=== PATIENT | female | born 1965 | race Caucasian/White ===

== ENCOUNTER 2023-03-16 14:20 | Inpatient (IN) ==
--- NOTE | 2023-03-16 15:13 | DR.NAUSEAF ---
HPI Time Seen Time Seen by Provider: 03/16/23 15:13 Primary Care Physician Primary Care Physician: marty hernandez Complaints Chief Complaint Doctors Comments: 57 y/o female presents with worsening nausea, vomiting and weakness. PT has had a stormy course past several months. Underwent partial colon resection 06/2022, for perforated diverticulitis, went septic after that. They attempted to reverse the colostomy 12/2022, was unable. 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 Currently receiving TPN, as they are trying to build her back up for reversal. Has had chronic nausea for several months. Worsening past few days. Is vomiting small amounts at a time. Has been running a low grade temp, having increasing weakness. Has a chronic Weller. Chief Complaint:: pt c/o of increase nausea x2 days and a low grade fever. called her surgeon and he told her to come get checked out. COVID-19 Coronavirus risk:travel/contact w/high risk person: No Has patient experienced Coronavirus symptoms: No Reviewed Nurses Notes Reviewed: Yes Source History Provided: Patient Mode of Arrival Mode of Arrival: Wheelchair Timing Onset of Chief Complaint: 03/14/23 PMH PMH Past Medical History: Yes Past Medical History: Hypothyroidism Past Medical History Comment: glaucoma, fistula x2 Past Surgical History: Yes Surgical History: Abdominal Surgery, Hysterectomy and Ortho Surgery Past Surgical History Comment: colostomy Family History History of Family Medical Conditions: Yes Family Medical History: Cancer, [place], Heart Failure and Hypertension Social History Does patient currently use any type of tobacco product: No Have you used tobacco products in the last 12 months: No Alcohol Use: None Do you use any recreational Drugs:: No Lives With: Family Lives Where: Home Travel Risk Coronavirus risk:travel/contact w/high risk person: No Has patient experienced Coronavirus symptoms: No Infectious screening In the last 2 months have you had wt loss of >10#?: NO Have you had fever, night sweats or hemotysis?: No Have you traveled outside the country in the last 6 months?: No Isolation: Standard ROS Review of Systems Constitutional: Fever and Weakness Eyes: No Symptoms Reported ENTM: No Symptoms Reported Respiratoy: No Symptoms Reported Cardiovascular: No Symptoms Reported Gastrointestinal/Abdominal: Nausea and Vomiting Genitourinary: No Symptoms Reported Neurological: Weakness Musculoskeletal: No Symptoms Reported Integumentary: No Symptoms Reported Hematologic/Lymphatic: No Symptoms Reported All Other Systems: Reviewed and Negative PE Vital Signs Vitals: Vital Signs Temperature 98.0 F Temperature 98.5 F Pulse Rate 114 Pulse Rate 115 Pulse Rate 119 Pulse Rate 115 Pulse Rate 115 Pulse Rate 116 Pulse Rate 120 Pulse Rate 123 Pulse Rate 123 Pulse Rate 116 Pulse Rate 109 Pulse Rate 105 Pulse Rate 88 Pulse Rate 96 Pulse Rate 77 Pulse Rate 74 Pulse Rate 80 Pulse Rate 81 Pulse Rate 82 Pulse Rate 82 Pulse Rate 85 Pulse Rate 86 Pulse Rate 139 Pulse Rate 87 Pulse Rate 88 Pulse Rate 89 Pulse Rate 91 Respiratory Rate 52 Respiratory Rate 44 Respiratory Rate 41 Respiratory Rate 39 Respiratory Rate 56 Respiratory Rate 54 Respiratory Rate 45 Respiratory Rate 66 Respiratory Rate 0 Respiratory Rate 0 Respiratory Rate 56 Respiratory Rate 49 Respiratory Rate 47 Respiratory Rate 46 Respiratory Rate 38 Respiratory Rate 47 Respiratory Rate 55 Respiratory Rate 45 Respiratory Rate 47 Respiratory Rate 69 Respiratory Rate 19 Respiratory Rate 34 Respiratory Rate 27 Blood Pressure 93/52 Blood Pressure 93/50 Blood Pressure 89/52 Blood Pressure 122/55 Blood Pressure 122/55 Blood Pressure 161/85 Blood Pressure 149/84 Blood Pressure 162/65 Blood Pressure 84/48 Blood Pressure 76/45 Blood Pressure 82/54 Blood Pressure 91/65 Blood Pressure 91/65 O2 Sat by Pulse Oximetry 98 O2 Sat by Pulse Oximetry 97 O2 Sat by Pulse Oximetry 97 O2 Sat by Pulse Oximetry 97 O2 Sat by Pulse Oximetry 96 O2 Sat by Pulse Oximetry 96 O2 Sat by Pulse Oximetry 94 O2 Sat by Pulse Oximetry 94 O2 Sat by Pulse Oximetry 95 O2 Sat by Pulse Oximetry 93 O2 Sat by Pulse Oximetry 70 O2 Sat by Pulse Oximetry 79 O2 Sat by Pulse Oximetry 78 O2 Sat by Pulse Oximetry 97 O2 Sat by Pulse Oximetry 97 O2 Sat by Pulse Oximetry 98 O2 Sat by Pulse Oximetry 98 O2 Sat by Pulse Oximetry 97 O2 Sat by Pulse Oximetry 96 O2 Sat by Pulse Oximetry 98 O2 Sat by Pulse Oximetry 96 O2 Sat by Pulse Oximetry 96 O2 Sat by Pulse Oximetry 97 O2 Sat by Pulse Oximetry 99 O2 Sat by Pulse Oximetry 99 O2 Sat by Pulse Oximetry 98 General General Appearance: Alert and In No Apparent Distress Eyes Eye exam: PERRL and EOMI ENT ENT Exam: Normal Oropharynx and Mucous Membranes Moist Neck Neck Exam: Normal Inspection Respiratory Respiratory Exam: Normal Lung Sounds Bilat; negative Accessory Muscle Use or Respiratory Distress Cardiovascular Cardiovascular Exam: Regular Rate, Normal Rhythm and Normal Heart Sounds Abdominal Exam Abdominal Exam: Normal Bowel Sounds, Soft and Other (+ colostomy, + wound over suprapubic region); negative Tenderness or Guarding Extremities Extremities Exam: Normal Inspection; negative Edema Neurologic Neurological Exam: Alert, Oriented X3 and CN II-XII Intact; negative Motor Sensory Deficit Skin Skin Exam: Warm and Dry COURSE Treatment Treatment: 57 y/o female, having chronic problems with her abdomen following surgery for perforated diverticulitis. BP low on arrival, had a recent + blood culture. Presentation concerning for sepsis. W/u initiated. Pt given IV fluids. Pt's urine culture here on the grew out enterococcus faecalis, was sensitive to quinolones, given IV Levaquin. Pt given additional fluids. Labs show WBC 11.6K, platelets a bit low at 97k. Bicarb acceptabe, lactic acid at top normal, 2.0. Has a low sodium, 129. U/A obtained from the weller shows 30- 50 WBCs/hpf. Lipase up a bit at 542, was higher on last visit. Pt with hyponatremia, UTI. BP low concerning for developing sepsis. Will admit for fur ther IV fluids/antibiotics. Discussed with Dr Foster, management professionals, accepts the admission. ROR Labs Reviewed Laboratory Results Reviewed?: Yes 03/16/23 15:35 03/16/23 15:35 Laboratory: WBC 11.6 X10^3/uL (3.6-10.0) H 03/16/23 15:35 RBC 3.33 X10^6/uL (3.5-5.4) L 03/16/23 15:35 Hgb 9.4 g/dL (12.0-16.0) L 03/16/23 15:35 Hct 27.9 % (36.0-47.0) L 03/16/23 15:35 MCV 83.6 fL (80.0-100.0) 03/16/23 15:35 MCH 28.3 pg (27.0-34.0) 03/16/23 15:35 MCHC 33.8 g/dL (33.0-35.0) 03/16/23 15:35 RDW 17.9 % (11.6-16.5) H 03/16/23 15:35 Plt Count 97 X10^3/uL (150.0-450.0) L 03/16/23 15:35 MPV 9.3 fL (7.4-11.0) 03/16/23 15:35 Neut % (Auto) 86.1 % (42.0-75.0) H 03/16/23 15:35 Lymph % (Auto) 7.5 % (21.0-51.0) L 03/16/23 15:35 [place] % (Auto) 6.2 % (0.0-13.0) 03/16/23 15:35 Eos % (Auto) 0.0 % (0.9-2.9) L 03/16/23 15:35 Baso % (Auto) 0.2 % (0.2-1.0) 03/16/23 15:35 Neut # (Auto) 10.0 x10^3/uL (2.2-4.8) H 03/16/23 15:35 Lymph # (Auto) 0.9 X10^3/uL (1.3-2.9) L 03/16/23 15:35 [place] # (Auto) 0.7 x10^3/uL (0.3-0.8) 03/16/23 15:35 Eos # (Auto) 0.0 x10^3/uL (0.0-0.2) 03/16/23 15:35 Baso # (Auto) 0.0 X10^3/uL (0.0-0.1) 03/16/23 15:35 Absolute Nucleated RBC 0.0 /100WBC 03/16/23 15:35 Sodium 129 mmol/L (136-145) L 03/16/23 15:35 Corrected Sodium 130 mmol/L (136-145) L 03/16/23 15:35 Potassium 3.5 mmol/L (3.5-5.1) 03/16/23 15:35 Chloride 97 mmol/L (98-107) L 03/16/23 15:35 Carbon Dioxide 21.9 mmol/L (21-32) 03/16/23 15:35 BUN 38 mg/dL (7-18) H 03/16/23 15:35 Creatinine 1.18 mg/dL (0.55-1.02) H 03/16/23 15:35 Est GFR (MDRD) Af Amer > 60 (>60) 03/16/23 15:35 Est GFR (MDRD) Non-Af 50 (>60) L 03/16/23 15:35 Glucose 122 mg/dL (65-99) H 03/16/23 15:35 Lactic Acid 2.0 mmol/L (0.4-2.0) 03/16/23 15:35 Calcium 8.2 mg/dL (8.5-10.1) L 03/16/23 15:35 Corrected Calcium 9.7 mg/dL (8.5-10.1) 03/16/23 15:35 Total Bilirubin 1.30 mg/dL (0.2-1.0) H 03/16/23 15:35 AST 46 Units/L (15-37) H 03/16/23 15:35 ALT 86 Units/L (12-78) H 03/16/23 15:35 Alkaline Phosphatase 206 Units/L (46-116) H 03/16/23 15:35 Total Protein 6.0 g/dL (6.4-8.2) L 03/16/23 15:35 Albumin 2.1 g/dL (3.4-5.0) L 03/16/23 15:35 Globulin 3.9 g/dL (2.5-4.5) 03/16/23 15:35 Albumin/Globulin Ratio 0.5 Ratio (1.1-2.1) L 03/16/23 15:35 Lipase 542 Units/L (73-393) H 03/16/23 15:35 Specimen Type Catherized urine 03/16/23 18:10 Urine Color Dark yellow (YELLOW) 03/16/23 18:10 Urine Appearance Turbid (CLEAR) 03/16/23 18:10 Urine pH 5.0 (5.0 - 8.0) 03/16/23 18:10 Ur Specific [place] 1.025 (1.000-1.030) 03/16/23 18:10 Urine Protein 2+ (NEGATIVE) 03/16/23 18:10 Urine Glucose (UA) Negative (NEGATIVE) 03/16/23 18:10 Urine Ketones Negative (NEGATIVE) 03/16/23 18:10 Urine Blood 5+ (NEGATIVE) 03/16/23 18:10 Urine Nitrite Negative (NEGATIVE) 03/16/23 18:10 Urine Bilirubin 3+ (NEGATIVE) 03/16/23 18:10 Urine Urobilinogen 3+ (NORMAL) 03/16/23 18:10 Ur Leukocyte Esterase 3+ (NEGATIVE) 03/16/23 18:10 Urine RBC 5-10 /HPF (0-3) A 03/16/23 18:10 Urine WBC 30-50 /HPF (0-5) A 03/16/23 18:10 Ur Squamous Epith Cells Rare /HPF (NEGATIVE) 03/16/23 18:10 Ur Transition Epith Cell Few /HPF (NEGATIVE) 03/16/23 18:10 Amorphous Sediment 2+ /HPF (NEGATIVE) 03/16/23 18:10 Urine Bacteria 3+ /HPF (NEGATIVE) 03/16/23 18:10 Ur Culture Indicated? Yes/culture set up 03/16/23 18:10 Low sodium, + UTI Opioid Opioid Risk Tool Age (Tee box if 16-45): No History of Preadolescent Sexual Abuse: No Total: 0 Total Score Risk Category: Low Risk Copyright: Eric MARLEY predicting aberrant behaviors Discharge Plan Diagnosis Discharge Problem: Acute hyponatremia, Acute lower urinary tract infection Discharge Plan Patient Disposition: 09 ADMITTED INPATIENT Condition: Stable Prescriptions: No Action nystatin 100,000 unit/mL suspension PO oxycodone-acetaminophen 5-325 mg tablet 1 tab PO Q4H PRN (Reason: pain) famotidine 20 mg tablet 20 mg PO BID cholecalciferol (vitamin D3) 1,250 mcg (50,000 unit) capsule 1,250 mcg PO QWEEK Health Concerns: Post Hospitalization: new medications and changes needed to prevent readmission or further decline. Pt educated and given instructions on all concerns. Plan of Treatment: Continue with present treatment and follow up plan. Pt is to keep follow up appointment as instructed and take medications as ordered. Orders to Discharge Patient Discharge Orders: Transfer (Routine); Ordered 03/16/23 Ordered By: Tres Alejo Follow ups/Referrals Follow ups/Referrals: MARTY FERRER [Primary Care Provider] - 3 days
[2023-03-16] MEDS ORDERED: NS 1,000 ML IV 1,000 ML IV ONE ×2 (15:23→17:05)
[2023-03-16] MEDS ORDERED: NS 1,000 ML IV 1,000 ML ONE ×2 (15:26→17:06)
[2023-03-16 16:13] LABS: BASOPHILS % (AUTO) 0.2 % (0.2-1.0); HEMATOCRIT 27.9 % (36.0-47.0); HEMOGLOBIN 9.4 g/dL (12.0-16.0); LYMPHOCYTES # (AUTO) 0.9 X10^3/uL (1.3-2.9); LYMPHOCYTES % (AUTO) 7.5 % (21.0-51.0); MEAN CORPUSCULAR HEMOGLOBIN 28.3 pg (27.0-34.0); MEAN CORPUSCULAR HGB CONC 33.8 g/dL (33.0-35.0); MEAN CORPUSCULAR VOLUME 83.6 fL (80.0-100.0); MEAN PLATELET VOLUME 9.3 fL (7.4-11.0); MONOCYTES # (AUTO) 0.7 x10^3/uL (0.3-0.8); MONOCYTES % (AUTO) 6.2 % (0.0-13.0); NEUTROPHILS % (AUTO) 86.1 % (42.0-75.0); PLATELET COUNT 97 X10^3/uL (150.0-450.0); RED BLOOD COUNT 3.33 X10^6/uL (3.5-5.4); RED CELL DISTRIBUTION WIDTH 17.9 % (11.6-16.5); WHITE BLOOD COUNT 11.6 X10^3/uL (3.6-10.0)
[2023-03-16 16:32] LABS: ALANINE AMINOTRANSFERASE 86 Units/L (12-78); ALBUMIN 2.1 g/dL (3.4-5.0); ALKALINE PHOSPHATASE 206 Units/L (46-116); ASPARTATE AMINO TRANSFERASE 46 Units/L (15-37); BLOOD UREA NITROGEN 38 mg/dL (7-18); CALCIUM 8.2 mg/dL (8.5-10.1); CARBON DIOXIDE 21.9 mmol/L (21-32); CHLORIDE 97 mmol/L (98-107); COR CA(FOR HYPOALB) 9.7 mg/dL (8.5-10.1); COR NA(FOR HYPERGLY) 130 mmol/L (136-145); CREATININE 1.18 mg/dL (0.55-1.02); GLUCOSE 122 mg/dL (65-99); LIPASE 542 Units/L (73-393); POTASSIUM 3.5 mmol/L (3.5-5.1); SODIUM 129 mmol/L (136-145); eGFR NON BLACK RACES 50 (>60)
[2023-03-16] MEDS ORDERED: ZOFRAN INJ 4 MG VIAL IVP ONE (17:04)
[2023-03-16] MEDS ORDERED: ZOFRAN INJ 4 MG VIAL ONE (17:05)
[2023-03-16] MEDS ORDERED: LEVAQUIN PREMIX IV 750 MG 750 MG/150 ML BAG IV ONE ×2 (17:07→17:24)
[2023-03-16] MEDS ORDERED: ATIVAN INJ 2 MG VIAL ONE (17:08)
[2023-03-16] MEDS ORDERED: ATIVAN INJ 2 MG VIAL IVP ONE (17:15)
[2023-03-16 18:27] LABS: BILIRUBIN,URINE 3+ (NEGATIVE); BLOOD/HEMOGLOBIN,URINE 5+ (NEGATIVE); GLUCOSE, URINE NEGATIVE (NEGATIVE); KETONES,URINE NEGATIVE (NEGATIVE); LEUKOCYTE ESTERASE ,URINE 3+ (NEGATIVE); NITRITES,URINE NEGATIVE (NEGATIVE); PROTEIN,URINE 2+ (NEGATIVE); UROBILINOGEN,URINE 3+ (NORMAL)
[2023-03-16 18:49] LABS: APPEARANCE,URINE TURBID (CLEAR); BACTERIA,URINE 3+ /HPF (NEGATIVE); COLOR,URINE DARK YELLOW (YELLOW); SQUAMOUS EPITHELIAL CELL,UR RARE /HPF (NEGATIVE)
[2023-03-16 18:50] LABS: TRANSITIONAL EPI CELLS,URINE FEW /HPF (NEGATIVE)
[2023-03-16] MEDS ORDERED: CONSULT PHARMACY - POTASSIUM & MAGNESIUM XX SCH (21:00)
[2023-03-16] MEDS: D5 NS 1,000 ML IV 1,000 ML IV SCH (21:19)
[2023-03-16] MEDS: TYLENOL 325 MG TAB PO PRN (21:23)
[2023-03-16] MEDS: ZOFRAN INJ 4 MG VIAL IVP PRN (22:39)
[2023-03-16] MEDS ORDERED: K-DUR TAB 20 MEQ PO SCH (23:00)
[2023-03-16] MEDS ORDERED: MAG-OX TAB PO SCH (23:00)
--- NOTE | 2023-03-17 01:05 | RAD ---
HISTORYlow BP nausea, vomitingSTUDYCHEST, 1 VIEWCOMPARISONNoneFINDINGSThe trachea is midline. The cardiac silhouette is unremarkable. The lungs are clear without focal infiltrate or effusion. The bony thorax is unremarkable.IMPRESSIONNormal chest.Electronically signed by: Slick Morrow (Mar 17, 2023 01:03:41)
[2023-03-17] MEDS: MAGNESIUM SULFATE 1 GRAM/100 mL PREMIX 1 G/100 ML BAG IV SCH ×2 (01:33→02:39)
[2023-03-17] MEDS: K-RIDER 10 MEQ/NS 100 ML 10 MEQ/100 ML BAG IV SCH ×2 (01:33→02:38)
[2023-03-17] MEDS ORDERED: LEVOPHED 8 MG/250 ML IV *PREMIX 8 MG/250 ML PLAST..BAG IV PRN (04:48)
[2023-03-17 05:12] LABS: BASOPHILS % (AUTO) 0.1 % (0.2-1.0); HEMOGLOBIN 7.6 g/dL (12.0-16.0); LYMPHOCYTES # (AUTO) 0.5 X10^3/uL (1.3-2.9); LYMPHOCYTES % (AUTO) 11.1 % (21.0-51.0); MEAN CORPUSCULAR HEMOGLOBIN 28.9 pg (27.0-34.0); MEAN CORPUSCULAR HGB CONC 34.4 g/dL (33.0-35.0); MEAN CORPUSCULAR VOLUME 83.9 fL (80.0-100.0); MEAN PLATELET VOLUME 9.1 fL (7.4-11.0); MONOCYTES # (AUTO) 0.2 x10^3/uL (0.3-0.8); MONOCYTES % (AUTO) 4.7 % (0.0-13.0); NEUTROPHILS # (AUTO) 3.8 x10^3/uL (2.2-4.8); NEUTROPHILS % (AUTO) 84.1 % (42.0-75.0); PLATELET COUNT 56 X10^3/uL (150.0-450.0); RED BLOOD COUNT 2.62 X10^6/uL (3.5-5.4); WHITE BLOOD COUNT 4.5 X10^3/uL (3.6-10.0)
[2023-03-17 05:28] LABS: ALANINE AMINOTRANSFERASE 59 Units/L (12-78); ALBUMIN 1.5 g/dL (3.4-5.0); ALKALINE PHOSPHATASE 144 Units/L (46-116); ASPARTATE AMINO TRANSFERASE 32 Units/L (15-37); BLOOD UREA NITROGEN 28 mg/dL (7-18); CARBON DIOXIDE 18.9 mmol/L (21-32); CHLORIDE 108 mmol/L (98-107); COR NA(FOR HYPERGLY) 139 mmol/L (136-145); CREATININE 0.99 mg/dL (0.55-1.02); GLUCOSE 175 mg/dL (65-99); POTASSIUM 3.5 mmol/L (3.5-5.1); SODIUM 137 mmol/L (136-145); TOTAL PROTEIN 4.8 g/dL (6.4-8.2); eGFR NON BLACK RACES > 60 (>60)
[2023-03-17] MEDS: D5 NS 1,000 ML IV 1,000 ML IV SCH ×4 (06:20→20:42)
[2023-03-17] MEDS ORDERED: LEVAQUIN PREMIX IV 750 MG 750 MG/150 ML BAG IV SCH (09:00)
[2023-03-17] MEDS: LEVAQUIN PREMIX IV 750 MG 750 MG/150 ML BAG IV SCH (09:38)
[2023-03-17] MEDS: TYLENOL 325 MG TAB PO PRN ×2 (09:39→18:11)
[2023-03-17] MEDS ORDERED: NS 100 ML IV 100 ML ONE (09:53)
[2023-03-17] MEDS ORDERED: OMNIPAQUE 350 mg/mL 100 mL BTL 100 ML ONE (09:54)
[2023-03-17 10:45] LABS: CRYPTOSPORIDIUM PARVUM ANTIGEN NEGATIVE (NEGATIVE); GIARDIA LAMBLIA ANTIGEN NEGATIVE (NEGATIVE)
--- NOTE | 2023-03-17 10:55 | CT ---
HISTORYABDOMINAL PAIN, FEVERSTUDYABDOMEN/PELVIS WITH CONCOMPARISONCT abdomen and pelvis from 03/11/2023.TECHNIQUEMultiple axial images of the abdomen and pelvis were obtained from the lung bases to the upper thighs after the administration of IV contrast. Dose reduction techniques including Automated Exposure Control (AEC) and adjustment of mA and kV were utilized.FINDINGSThere are trace bilateral pleural effusions. The heart is normal in size. Minimal bibasilar subsegmental atelectasis. There is a cyst in the left jocelyn liver that measures 4.2 cm AP image 17 series 3. The gallbladder, spleen, pancreas, and right adrenal gland have a benign appearance. There is mild thickening of the left adrenal gland. Small right midpole renal lesion measures 1.1 cm image 33 series 3. Hounsfield units are approximately 24 likely representing a cyst. There is a Back catheter in a decompressed urinary bladder. There is mild fat stranding about the urinary bladder. There is a suspected fistula between the urinary bladder and bowel at the surgical anastomosis in the pelvis with no clear fat plane between these structures image 41 series 6 and image 22 series 5. There is postoperative change to bowel in this region with possible collection versus fluid-filled bowel such as image 63 series 3 and image 41 series 6 that measures up to 4.9 cm AP on image 41 series 6 x 1.1 cm craniocaudal and 2.8 cm medial-lateral image 63 series 3. Bowel is difficult to follow. Status post partial colectomy with left lower quadrant colostomy. The prostate is normal in size. Appendix is not visualized. Negative for bowel obstruction. Moderately atherosclerotic normal caliber abdominal aorta. Trace fluid in the left pericolic gutter. Surgical defect in the midline anterior body wall. Bowel is closely approximated to the anterior body wall at midline. Mild body wall edema. No free air. No pathologic adenopathy. No acute osseous abnormality. Small fat containing left inguinal hernia.IMPRESSIONPostoperative change to bowel including partial colectomy. There is a bowel anastomosis at the anterior pelvis with suspected fistula between bowel and urinary bladder in this location. Mild fat stranding about the urinary bladder suggests cystitis. There is possible collection versus is fluid-filled bowel at the anterior margin of the anastomosis. P.o. contrast may help differentiate.Trace pleural effusions.Mild thickening of the left adrenal gland is nonspecific but often adenomatous.Electronically signed by: Tushar Crowder (Mar 17, 2023 10:54:17)
[2023-03-17] MEDS: ZOFRAN INJ 4 MG VIAL IVP PRN ×2 (11:10→23:23)
[2023-03-17 11:53] LABS: BASOPHILS % (AUTO) 0.4 % (0.2-1.0); HEMATOCRIT 25.5 % (36.0-47.0); HEMOGLOBIN 8.6 g/dL (12.0-16.0); LYMPHOCYTES # (AUTO) 0.6 X10^3/uL (1.3-2.9); LYMPHOCYTES % (AUTO) 9.6 % (21.0-51.0); MEAN CORPUSCULAR HEMOGLOBIN 28.7 pg (27.0-34.0); MEAN CORPUSCULAR HGB CONC 33.9 g/dL (33.0-35.0); MEAN CORPUSCULAR VOLUME 84.7 fL (80.0-100.0); MEAN PLATELET VOLUME 8.5 fL (7.4-11.0); MONOCYTES # (AUTO) 0.3 x10^3/uL (0.3-0.8); MONOCYTES % (AUTO) 5.6 % (0.0-13.0); NEUTROPHILS # (AUTO) 4.9 x10^3/uL (2.2-4.8); NEUTROPHILS % (AUTO) 84.4 % (42.0-75.0); PLATELET COUNT 62 X10^3/uL (150.0-450.0); RED BLOOD COUNT 3.01 X10^6/uL (3.5-5.4); RED CELL DISTRIBUTION WIDTH 18.1 % (11.6-16.5); WHITE BLOOD COUNT 5.8 X10^3/uL (3.6-10.0)
--- NOTE | 2023-03-17 14:26 | DR.H&P ---
H&P - History & Physical for Day of: H&P Date: 03/16/23 - Chief Complaint Chief Complaint: fever, UTI, weakness, vomiting - History of Present Illness History of Present Illness: 57 y/o female presents with worsening nausea, vomiting and weakness. Underwent partial colon resection 06/2022, for perforated diverticulitis, went septic after that. They attempted to reverse the colostomy 12/2022, was unable. 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 Currently receiving TPN, as they are trying to build her back up for reversal. Has had chronic nausea for several months. Worsening past few days. Is vomiting small amounts at a time. Has been running a low grade temp, having increasing weakness. Has a chronic Mc. - Past Medical History Past Medical History: Hypothyroidism Additional Medical History: RLS - Past Surgical History Surgical History: Abdominal Surgery, Hysterectomy, Ortho Surgery - Family History Family Medical History: Cancer, Heart Failure - Social History Does patient currently use any type of tobacco product: No Have you used tobacco products in the last 12 months: No Type of Tobacco Use: None Does any household member use tobacco: No Alcohol Use: None Drug Use: None - Review of Systems Constitutional: Fever, Weakness, Malaise Eyes: No Symptoms Reported ENT: No Symptoms Reported Respiratory: SOB with Excertion Cardiovascular: No Symptoms Reported Gastrointestinal: Nausea, Vomiting Genitourinary: Other (MC) Musculoskeletal: Leg Pain Skin: Wound Neurological: Weakness - Physical Exam Vital Signs: Vital Signs Pulse Rate 91 Pulse Rate 87 Pulse Rate 88 Pulse Rate 90 Pulse Rate 90 Pulse Rate 81 Pulse Rate 93 Pulse Rate 88 Pulse Rate 86 Pulse Rate 86 Pulse Rate 86 Pulse Rate 79 Pulse Rate 76 Pulse Rate 77 Pulse Rate 85 Pulse Rate 88 Pulse Rate 84 Pulse Rate 79 Pulse Rate 80 Pulse Rate 80 Pulse Rate 75 Pulse Rate 73 Respiratory Rate 20 Respiratory Rate 18 Respiratory Rate 20 Respiratory Rate 20 Respiratory Rate 18 Respiratory Rate 19 Respiratory Rate 33 Respiratory Rate 34 Respiratory Rate 25 Respiratory Rate 27 Respiratory Rate 18 Respiratory Rate 26 Respiratory Rate 34 Respiratory Rate 23 Respiratory Rate 24 Respiratory Rate 24 Respiratory Rate 32 Respiratory Rate 28 Respiratory Rate 30 Respiratory Rate 27 Respiratory Rate 28 Respiratory Rate 24 Respiratory Rate 23 Respiratory Rate 25 Blood Pressure 101/58 Blood Pressure 94/57 Blood Pressure 94/56 Blood Pressure 113/72 Blood Pressure 133/60 Blood Pressure 108/59 Blood Pressure 118/67 Blood Pressure 110/68 Blood Pressure 121/72 Blood Pressure 115/58 Blood Pressure 109/55 Blood Pressure 107/64 Blood Pressure 106/62 Blood Pressure 119/79 Blood Pressure 136/83 Blood Pressure 120/60 Blood Pressure 114/73 Blood Pressure 114/69 Blood Pressure 99/56 Blood Pressure 104/58 Blood Pressure 100/57 O2 Sat by Pulse Oximetry 99 O2 Sat by Pulse Oximetry 99 O2 Sat by Pulse Oximetry 99 O2 Sat by Pulse Oximetry 99 O2 Sat by Pulse Oximetry 98 O2 Sat by Pulse Oximetry 99 O2 Sat by Pulse Oximetry 98 O2 Sat by Pulse Oximetry 99 O2 Sat by Pulse Oximetry 99 O2 Sat by Pulse Oximetry 100 O2 Sat by Pulse Oximetry 99 O2 Sat by Pulse Oximetry 96 O2 Sat by Pulse Oximetry 99 O2 Sat by Pulse Oximetry 99 O2 Sat by Pulse Oximetry 100 O2 Sat by Pulse Oximetry 100 O2 Sat by Pulse Oximetry 100 O2 Sat by Pulse Oximetry 100 O2 Sat by Pulse Oximetry 99 O2 Sat by Pulse Oximetry 99 O2 Sat by Pulse Oximetry 97 O2 Sat by Pulse Oximetry 99 Oriented: Normal Eyes: Normal Ear: Normal Nose: Normal Throat: Normal Respiratory: RLL Diminished, LLL Diminished Cardiovascular: Normal Auscultation: Bowel Sounds: Decreased Tenderness: Diffuse, Mild Skin: Decreased Turgur, Wound Musculoskeletal: Normal Psychiatric: Anxiety Affect: Anxious Speech Pattern: Clear, Appropriate - Assessment/Plan (1) Sepsis Status: Acute Plan: ADMIT, ICU. BLOOD, URINE AND WOUND CULTURE ON ADMISSION. IV HYDRATION, STRICT I&OS. BP CONTROL WITH LEVOPHED FOR HYPOTENSION PER PROTOCOL. CONTINUE TPN (2) Urinary tract infection Status: Acute (3) Open abdominal wall wound Status: Acute (4) Acute hyponatremia Status: Acute - Allergies Allergies/Adverse Reactions: Allergies Allergy/AdvReac Type Severity Reaction Status Date / Time amoxicillin Allergy Verified 03/11/23 12:48 - Medications Home Medications: Home Medications Medication Instructions Recorded Confirmed cholecalciferol (vitamin D3) 1,250 1,250 mcg PO QWEEK 03/16/23 03/16/23 mcg (50,000 unit) capsule famotidine 20 mg tablet 20 mg PO BID 03/16/23 03/16/23 nystatin 100,000 unit/mL oral 2 ml PO 4-6XD 03/16/23 03/17/23 suspension oxycodone-acetaminophen 5 mg-325 1 tab PO Q4H PRN pain 03/16/23 03/16/23 mg tablet ondansetron 4 mg disintegrating 4 mg PO 4-6XD 03/17/23 03/17/23 tablet progesterone micronized 200 mg 200 mg PO QPM 03/17/23 03/17/23 capsule
[2023-03-17] MEDS ORDERED: PATIENT'S HOME MEDICATION IV SCH (18:00)
[2023-03-17] MEDS ORDERED: DRUG FILTER EXTENSION SET ONE (18:19)
[2023-03-18 05:48] LABS: BASOPHILS % (AUTO) 0.3 % (0.2-1.0); EOSINOPHILS % (AUTO) 0.3 % (0.9-2.9); HEMATOCRIT 22.7 % (36.0-47.0); HEMOGLOBIN 7.8 g/dL (12.0-16.0); LYMPHOCYTES # (AUTO) 0.8 X10^3/uL (1.3-2.9); LYMPHOCYTES % (AUTO) 17.3 % (21.0-51.0); MEAN CORPUSCULAR HEMOGLOBIN 28.7 pg (27.0-34.0); MEAN CORPUSCULAR HGB CONC 34.2 g/dL (33.0-35.0); MEAN CORPUSCULAR VOLUME 83.8 fL (80.0-100.0); MEAN PLATELET VOLUME 11.1 fL (7.4-11.0); MONOCYTES # (AUTO) 0.4 x10^3/uL (0.3-0.8); MONOCYTES % (AUTO) 8.1 % (0.0-13.0); NEUTROPHILS # (AUTO) 3.2 x10^3/uL (2.2-4.8); PLATELET COUNT 50 X10^3/uL (150.0-450.0); RED BLOOD COUNT 2.71 X10^6/uL (3.5-5.4); RED CELL DISTRIBUTION WIDTH 17.3 % (11.6-16.5); WHITE BLOOD COUNT 4.4 X10^3/uL (3.6-10.0)
[2023-03-18] MEDS: TYLENOL 325 MG TAB PO PRN (05:50)
[2023-03-18] MEDS: ZOFRAN INJ 4 MG VIAL IVP PRN (05:51)
[2023-03-18 05:55] LABS: LACTIC ACID 0.9 mmol/L (0.4-2.0)
[2023-03-18 05:59] LABS: ALANINE AMINOTRANSFERASE 44 Units/L (12-78); ALBUMIN 1.5 g/dL (3.4-5.0); ALKALINE PHOSPHATASE 126 Units/L (46-116); ASPARTATE AMINO TRANSFERASE 23 Units/L (15-37); BLOOD UREA NITROGEN 19 mg/dL (7-18); CALCIUM 7.5 mg/dL (8.5-10.1); CARBON DIOXIDE 21.9 mmol/L (21-32); CHLORIDE 105 mmol/L (98-107); COR CA(FOR HYPOALB) 9.5 mg/dL (8.5-10.1); COR NA(FOR HYPERGLY) 136 mmol/L (136-145); CREATININE 0.72 mg/dL (0.55-1.02); GLUCOSE 150 mg/dL (65-99); MAGNESIUM 1.9 mg/dL (2.0-2.9); POTASSIUM 3.2 mmol/L (3.5-5.1); SODIUM 135 mmol/L (136-145); TOTAL PROTEIN 5.1 g/dL (6.4-8.2); eGFR NON BLACK RACES > 60 (>60)
[2023-03-18] MEDS: D5 NS 1,000 ML IV 1,000 ML IV SCH ×2 (06:00→08:49)
[2023-03-18] MEDS ORDERED: CONSULT PHARMACY - POTASSIUM & MAGNESIUM XX SCH ×2 (07:00)
--- NOTE | 2023-03-18 08:16 | RAD ---
HISTORYSOBSTUDYCHEST, 1 [id number] cardiomediastinal silhouette is stable. Left PICC unchanged. No acute airspace disease. No pneumothorax or effusion. The bony thorax appears intact.IMPRESSIONNo acute cardiopulmonary disease.Electronically signed by: LITZY STONE (Mar 18, 2023 08:14:37)
[2023-03-18] MEDS ORDERED: DRUG FILTER EXTENSION SET ONE (08:35)
[2023-03-18] MEDS: CLINIMIX 5 %/20 % 1,000 ML with MVI INJ (ADULT) 10 ML, TPN ELECTROLYTES 20 ML, POTASSIU... IV SCH ×5 (08:48)
[2023-03-18] MEDS: LEVAQUIN PREMIX IV 750 MG 750 MG/150 ML BAG IV SCH (08:49)
[2023-03-18] MEDS ORDERED: MAGNESIUM SULFATE 1 GRAM/100 mL PREMIX 1 G/100 ML BAG IV SCH (09:00)
[2023-03-18] MEDS ORDERED: K-RIDER 10 MEQ/NS 100 ML 10 MEQ/100 ML BAG IV SCH (09:00)
[2023-03-18] MEDS ORDERED: D5 NS + KCL 20 MEQ/L 1,000 ML IV SCH (09:00)
[2023-03-18 12:18] VITALS: BMI 29.9
[2023-03-18] MEDS: REQUIP PO PRN (21:11)
[2023-03-18] MEDS: LIPOSYN III 20% 250ML 250 ML IV SCH (21:13)
[2023-03-19] MEDS: TYLENOL 325 MG TAB PO PRN ×2 (02:35→23:39)
[2023-03-19 05:21] LABS: BASOPHILS % (AUTO) 0.4 % (0.2-1.0); EOSINOPHILS % (AUTO) 0.6 % (0.9-2.9); HEMATOCRIT 25.2 % (36.0-47.0); HEMOGLOBIN 8.6 g/dL (12.0-16.0); LYMPHOCYTES # (AUTO) 1.2 X10^3/uL (1.3-2.9); LYMPHOCYTES % (AUTO) 22.6 % (21.0-51.0); MEAN CORPUSCULAR HEMOGLOBIN 28.6 pg (27.0-34.0); MEAN CORPUSCULAR HGB CONC 34.2 g/dL (33.0-35.0); MEAN CORPUSCULAR VOLUME 83.5 fL (80.0-100.0); MONOCYTES # (AUTO) 0.5 x10^3/uL (0.3-0.8); MONOCYTES % (AUTO) 9.6 % (0.0-13.0); NEUTROPHILS # (AUTO) 3.6 x10^3/uL (2.2-4.8); NEUTROPHILS % (AUTO) 66.8 % (42.0-75.0); PLATELET COUNT 72 X10^3/uL (150.0-450.0); RED BLOOD COUNT 3.01 X10^6/uL (3.5-5.4); RED CELL DISTRIBUTION WIDTH 17.9 % (11.6-16.5); WHITE BLOOD COUNT 5.4 X10^3/uL (3.6-10.0)
[2023-03-19 05:29] LABS: ALANINE AMINOTRANSFERASE 37 Units/L (12-78); ALBUMIN 1.7 g/dL (3.4-5.0); ALKALINE PHOSPHATASE 137 Units/L (46-116); ASPARTATE AMINO TRANSFERASE 22 Units/L (15-37); BLOOD UREA NITROGEN 15 mg/dL (7-18); CALCIUM 7.8 mg/dL (8.5-10.1); CARBON DIOXIDE 23.5 mmol/L (21-32); CHLORIDE 105 mmol/L (98-107); COR CA(FOR HYPOALB) 9.6 mg/dL (8.5-10.1); CREATININE 0.79 mg/dL (0.55-1.02); GLUCOSE 105 mg/dL (65-99); MAGNESIUM 1.9 mg/dL (2.0-2.9); POTASSIUM 3.5 mmol/L (3.5-5.1); SODIUM 139 mmol/L (136-145); TOTAL PROTEIN 5.6 g/dL (6.4-8.2); eGFR NON BLACK RACES > 60 (>60)
[2023-03-19] MEDS: REQUIP PO PRN ×2 (05:49→23:38)
[2023-03-19 05:57] LABS: PLATELET MORPHOLOGY COMMENT NORMAL (NORMAL)
[2023-03-19] MEDS ORDERED: CONSULT PHARMACY - POTASSIUM & MAGNESIUM XX SCH (06:00)
[2023-03-19] MEDS ORDERED: DRUG FILTER EXTENSION SET ONE (08:25)
[2023-03-19] MEDS: CLINIMIX 5 %/20 % 1,000 ML with MVI INJ (ADULT) 10 ML, TPN ELECTROLYTES 20 ML, POTASSIU... IV SCH ×5 (08:46)
[2023-03-19] MEDS: LEVAQUIN PREMIX IV 750 MG 750 MG/150 ML BAG IV SCH (08:47)
[2023-03-19] MEDS: ZOFRAN INJ 4 MG VIAL IVP PRN (08:56)
[2023-03-19] MEDS ORDERED: MAG-OX TAB PO SCH (09:00)
[2023-03-19] MEDS ORDERED: K-DUR TAB 20 MEQ PO SCH (09:00)
--- NOTE | 2023-03-19 10:57 | DR.PROGNOT ---
HOSPITAL PROGRESS NOTE Progress Note for Day of: Progress Note Date: 03/19/23 Chief Complaint Chief Complaint: was slightly nauseated with abdominal discomfort . fitula draunage is less today . colostomy is functioning well .. afebrile . Past Medical Family Social History Past Med/Fam/Surg Hx: No changes since H&P Allergies: Allergies amoxicillin Allergy (Verified 03/11/23 12:48) Vital Signs Vital Signs: Vital Signs Temperature 98.1 F Pulse Rate 81 Pulse Rate 69 Pulse Rate 73 Pulse Rate 74 Pulse Rate 72 Pulse Rate 78 Pulse Rate 76 Pulse Rate 78 Pulse Rate 78 Pulse Rate 82 Pulse Rate 82 Respiratory Rate 25 Respiratory Rate 23 Respiratory Rate 21 Respiratory Rate 21 Respiratory Rate 23 Respiratory Rate 23 Respiratory Rate 23 Respiratory Rate 23 Respiratory Rate 23 Respiratory Rate 18 Respiratory Rate 20 Respiratory Rate 20 Blood Pressure 116/63 Blood Pressure 101/66 Blood Pressure 104/57 Blood Pressure 104/57 Blood Pressure 91/57 Blood Pressure 91/57 Blood Pressure 98/58 Blood Pressure 98/58 Blood Pressure 98/58 Blood Pressure 98/58 Blood Pressure 109/60 Blood Pressure 109/60 O2 Sat by Pulse Oximetry 95 O2 Sat by Pulse Oximetry 96 O2 Sat by Pulse Oximetry 96 O2 Sat by Pulse Oximetry 93 O2 Sat by Pulse Oximetry 94 O2 Sat by Pulse Oximetry 94 O2 Sat by Pulse Oximetry 95 O2 Sat by Pulse Oximetry 93 O2 Sat by Pulse Oximetry 95 O2 Sat by Pulse Oximetry 95 O2 Sat by Pulse Oximetry 95 Physical Exam Oriented: Normal Eyes: Normal Ear: Normal Nose: Normal Throat: Normal Cardiovascular: Normal GI:Auscultation: Decreased GI: Tenderness: Diffuse and Mild Skin: Decreased Turgur and Wound Musculoskeletal: Normal Psychiatric: Anxiety Affect: Anxious Speech Pattern: Clear and Appropriate Laboratory and Diagnostics 03/19/23 04:26 03/19/23 04:26 Labs: 03/17/23 07:50 Abdomen Wound Gram Stain - Final 03/17/23 07:50 Abdomen Wound Culture - Preliminary 03/16/23 18:10 Urine,Catheterized Urine Culture - Final Enterococcus Faecalis 03/16/23 15:45 Blood Blood Culture - Final Enterococcus Faecalis 03/16/23 15:35 Blood Blood Culture - Final Enterococcus Faecalis 03/17/23 07:50 Stool - Final Laboratory WBC 5.4 X10^3/uL (3.6-10.0) 03/19/23 04:26 RBC 3.01 X10^6/uL (3.5-5.4) L 03/19/23 04:26 Hgb 8.6 g/dL (12.0-16.0) L 03/19/23 04:26 Hct 25.2 % (36.0-47.0) L 03/19/23 04:26 MCV 83.5 fL (80.0-100.0) 03/19/23 04: MCH 28.6 pg (27.0-34.0) 03/19/23 04: MCHC 34.2 g/dL (33.0-35.0) 03/19/23 04: RDW 17.9 % (11.6-16.5) H 03/19/23 04: Plt Count 72 X10^3/uL (150.0-450.0) L 03/19/23 04:26 Plt Count Comment Decreased (ADEQUATE) A 03/19/23 04: MPV 11.0 fL (7.4-11.0) 03/19/23 04:26 Neut % (Auto) 66.8 % (42.0-75.0) 03/19/23 04: Lymph % (Auto) 22.6 % (21.0-51.0) 03/19/23 04: [place] % (Auto) 9.6 % (0.0-13.0) 03/19/23 04: Eos % (Auto) 0.6 % (0.9-2.9) L 03/19/23 04: Baso % (Auto) 0.4 % (0.2-1.0) 03/19/23 04: Neut # (Auto) 3.6 x10^3/uL (2.2-4.8) 03/19/23 04:26 Lymph # (Auto) 1.2 X10^3/uL (1.3-2.9) L 03/19/23 04:26 [place] # (Auto) 0.5 x10^3/uL (0.3-0.8) 03/19/23 04:26 Eos # (Auto) 0.0 x10^3/uL (0.0-0.2) 03/19/23 04:26 Baso # (Auto) 0.0 X10^3/uL (0.0-0.1) 03/19/23 04:26 Absolute Nucleated RBC 0.0 /100WBC 03/19/23 04:26 Total Counted 100 03/19/23 04:26 Neutrophils % (Manual) 75 % (39-76) 03/19/23 04:26 Lymphocytes % (Manual) 20 % (13-43) 03/19/23 04:26 Monocytes % (Manual) 5 % (4-9) 03/19/23 04:26 Plt Morphology Comment Normal (NORMAL) 03/19/23 04:26 RBC Morphology Normal (NORMAL) 03/19/23 04:26 Sodium 139 mmol/L (136-145) 03/19/23 04:26 Corrected Sodium TNP 03/19/23 04:26 Potassium 3.5 mmol/L (3.5-5.1) 03/19/23 04:26 Chloride 105 mmol/L (98-107) 03/19/23 04:26 Carbon Dioxide 23.5 mmol/L (21-32) 03/19/23 04:26 BUN 15 mg/dL (7-18) 03/19/23 04:26 Creatinine 0.79 mg/dL (0.55-1.02) 03/19/23 04:26 Est GFR (MDRD) Af Amer > 60 (>60) 03/19/23 04:26 Est GFR (MDRD) Non-Af > 60 (>60) 03/19/23 04:26 Glucose 105 mg/dL (65-99) H 03/19/23 04:26 POC Glucose (mg/dL) 104 mg/dL (65-99) H 03/19/23 05:30 Lactic Acid 0.9 mmol/L (0.4-2.0) 03/18/23 04:48 Calcium 7.8 mg/dL (8.5-10.1) L 03/19/23 04:26 Corrected Calcium 9.6 mg/dL (8.5-10.1) 03/19/23 04:26 Magnesium 1.9 mg/dL (2.0-2.9) L 03/19/23 04:26 Total Bilirubin 0.40 mg/dL (0.2-1.0) 03/19/23 04:26 AST 22 Units/L (15-37) 03/19/23 04:26 ALT 37 Units/L (12-78) 03/19/23 04:26 Alkaline Phosphatase 137 Units/L (46-116) H 03/19/23 04:26 Total Protein 5.6 g/dL (6.4-8.2) L 03/19/23 04:26 Albumin 1.7 g/dL (3.4-5.0) L 03/19/23 04:26 Globulin 3.9 g/dL (2.5-4.5) 03/19/23 04:26 Albumin/Globulin Ratio 0.4 Ratio (1.1-2.1) L 03/19/23 04:26 Lipase 542 Units/L (73-393) H 03/16/23 15:35 Specimen Type Catherized urine 03/16/23 18:10 Urine Color Dark yellow (YELLOW) 03/16/23 18:10 Urine Appearance Turbid (CLEAR) 03/16/23 18:10 Urine pH 5.0 (5.0 - 8.0) 03/16/23 18:10 Ur Specific [place] 1.025 (1.000-1.030) 03/16/23 18:10 Urine Protein 2+ (NEGATIVE) 03/16/23 18:10 Urine Glucose (UA) Negative (NEGATIVE) 03/16/23 18:10 Urine Ketones Negative (NEGATIVE) 03/16/23 18:10 Urine Blood 5+ (NEGATIVE) 03/16/23 18:10 Urine Nitrite Negative (NEGATIVE) 03/16/23 18:10 Urine Bilirubin 3+ (NEGATIVE) 03/16/23 18:10 Urine Urobilinogen 3+ (NORMAL) 03/16/23 18:10 Ur Leukocyte Esterase 3+ (NEGATIVE) 03/16/23 18:10 Urine RBC 5-10 /HPF (0-3) A 03/16/23 18:10 Urine WBC 30-50 /HPF (0-5) A 03/16/23 18:10 Ur Squamous Epith Cells Rare /HPF (NEGATIVE) 03/16/23 18:10 Ur Transition Epith Cell Few /HPF (NEGATIVE) 03/16/23 18:10 Amorphous Sediment 2+ /HPF (NEGATIVE) 03/16/23 18:10 Urine Bacteria 3+ /HPF (NEGATIVE) 03/16/23 18:10 Ur Culture Indicated? Yes/culture set up 03/16/23 18:10 Stl Occult Blood (IFOB) Negative (NEGATIVE) 03/17/23 07:50 Stool for White Cells Positive (NEGATIVE) A 03/17/23 07:50 Stl C. diff Tox B Gene Negative (NEGATIVE) 03/17/23 07:50 Stl C. diff [id number]-BI Presumptive negative (NEGATIVE) 03/17/23 07:50 Stool H. 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
[2023-03-19] MEDS: LIPOSYN III 20% 250ML 250 ML IV SCH (21:12)
[2023-03-19] MEDS: D5 NS 1,000 ML IV 1,000 ML IV SCH (22:05)
[2023-03-20 05:10] LABS: BASOPHILS % (AUTO) 0.5 % (0.2-1.0); EOSINOPHILS # (AUTO) 0.1 x10^3/uL (0.0-0.2); EOSINOPHILS % (AUTO) 1.8 % (0.9-2.9); HEMATOCRIT 24.7 % (36.0-47.0); HEMOGLOBIN 8.3 g/dL (12.0-16.0); LYMPHOCYTES # (AUTO) 1.5 X10^3/uL (1.3-2.9); LYMPHOCYTES % (AUTO) 28.4 % (21.0-51.0); MEAN CORPUSCULAR HEMOGLOBIN 28.2 pg (27.0-34.0); MEAN CORPUSCULAR HGB CONC 33.8 g/dL (33.0-35.0); MEAN CORPUSCULAR VOLUME 83.5 fL (80.0-100.0); MEAN PLATELET VOLUME 10.3 fL (7.4-11.0); MONOCYTES # (AUTO) 0.5 x10^3/uL (0.3-0.8); MONOCYTES % (AUTO) 10.1 % (0.0-13.0); NEUTROPHILS # (AUTO) 3.2 x10^3/uL (2.2-4.8); NEUTROPHILS % (AUTO) 59.2 % (42.0-75.0); PLATELET COUNT 82 X10^3/uL (150.0-450.0); RED BLOOD COUNT 2.96 X10^6/uL (3.5-5.4); RED CELL DISTRIBUTION WIDTH 17.5 % (11.6-16.5); WHITE BLOOD COUNT 5.4 X10^3/uL (3.6-10.0)
[2023-03-20] MEDS: TYLENOL 325 MG TAB PO PRN ×2 (05:10→23:54)
[2023-03-20 05:26] LABS: ALANINE AMINOTRANSFERASE 33 Units/L (12-78); ALBUMIN 1.7 g/dL (3.4-5.0); ALKALINE PHOSPHATASE 160 Units/L (46-116); ASPARTATE AMINO TRANSFERASE 21 Units/L (15-37); BLOOD UREA NITROGEN 14 mg/dL (7-18); CALCIUM 7.9 mg/dL (8.5-10.1); CARBON DIOXIDE 23.6 mmol/L (21-32); CHLORIDE 107 mmol/L (98-107); COR CA(FOR HYPOALB) 9.7 mg/dL (8.5-10.1); CREATININE 0.78 mg/dL (0.55-1.02); GLUCOSE 100 mg/dL (65-99); MAGNESIUM 2.1 mg/dL (2.0-2.9); POTASSIUM 3.8 mmol/L (3.5-5.1); SODIUM 140 mmol/L (136-145); TOTAL PROTEIN 5.4 g/dL (6.4-8.2); eGFR NON BLACK RACES > 60 (>60)
[2023-03-20] MEDS ORDERED: CONSULT PHARMACY - POTASSIUM & MAGNESIUM XX SCH (07:00)
[2023-03-20] MEDS ORDERED: K-DUR TAB 20 MEQ PO SCH (07:00)
--- NOTE | 2023-03-20 08:55 | DR.PROGNOT ---
HOSPITAL PROGRESS NOTE Progress Note for Day of: Progress Note Date: 03/20/23 Chief Complaint Chief Complaint: doing fairly well , no nausea or vomiting today ..tolerating TPN . mild drainage from fistula site . Album 1.7.. BUN, Creat , LFT all normal .. Past Medical Family Social History Past Med/Fam/Surg Hx: No changes since H&P Allergies: Allergies amoxicillin Allergy (Verified 03/11/23 12:48) Vital Signs Vital Signs: Vital Signs Temperature 98.2 F Pulse Rate 63 Pulse Rate 72 Pulse Rate 66 Pulse Rate 68 Pulse Rate 68 Pulse Rate 71 Pulse Rate 69 Pulse Rate 68 Pulse Rate 71 Pulse Rate 65 Pulse Rate 68 Pulse Rate 68 Pulse Rate 65 Pulse Rate 65 Pulse Rate 68 Pulse Rate 67 Respiratory Rate 21 Respiratory Rate 20 Respiratory Rate 22 Respiratory Rate 23 Respiratory Rate 22 Respiratory Rate 20 Respiratory Rate 25 Respiratory Rate 20 Respiratory Rate 21 Respiratory Rate 20 Respiratory Rate 21 Respiratory Rate 21 Respiratory Rate 21 Respiratory Rate 22 Respiratory Rate 22 Respiratory Rate 21 Respiratory Rate 22 Blood Pressure 113/65 Blood Pressure 112/62 Blood Pressure 97/55 Blood Pressure 97/55 Blood Pressure 111/63 Blood Pressure 111/63 Blood Pressure 138/69 Blood Pressure 138/69 Blood Pressure 88/51 Blood Pressure 88/51 Blood Pressure 115/59 Blood Pressure 115/59 Blood Pressure 102/59 Blood Pressure 102/59 O2 Sat by Pulse Oximetry 97 O2 Sat by Pulse Oximetry 98 O2 Sat by Pulse Oximetry 95 O2 Sat by Pulse Oximetry 96 O2 Sat by Pulse Oximetry 96 O2 Sat by Pulse Oximetry 97 O2 Sat by Pulse Oximetry 96 O2 Sat by Pulse Oximetry 97 O2 Sat by Pulse Oximetry 98 O2 Sat by Pulse Oximetry 97 O2 Sat by Pulse Oximetry 96 O2 Sat by Pulse Oximetry 96 O2 Sat by Pulse Oximetry 97 O2 Sat by Pulse Oximetry 97 O2 Sat by Pulse Oximetry 96 O2 Sat by Pulse Oximetry 96 Physical Exam Oriented: Normal Eyes: Normal Ear: Normal Nose: Normal Throat: Normal Cardiovascular: Normal GI:Auscultation: Decreased GI: Tenderness: Diffuse and Mild Skin: Decreased Turgur and Wound Musculoskeletal: Normal Psychiatric: Anxiety Affect: Anxious Speech Pattern: Clear and Appropriate Laboratory and Diagnostics 03/20/23 04:06 03/20/23 04:06 Labs: 03/17/23 07:50 Abdomen Wound Gram Stain - Final 03/17/23 07:50 Abdomen Wound Culture - Preliminary Staphylococcus Epidermidis 03/16/23 18:10 Urine,Catheterized Urine Culture - Final Enterococcus Faecalis 03/16/23 15:45 Blood Blood Culture - Final Enterococcus Faecalis 03/16/23 15:35 Blood Blood Culture - Final Enterococcus Faecalis 03/17/23 07:50 Stool - Final Laboratory WBC 5.4 X10^3/uL (3.6-10.0) 03/20/23 04:06 RBC 2.96 X10^6/uL (3.5-5.4) L 03/20/23 04:06 Hgb 8.3 g/dL (12.0-16.0) L 03/20/23 04:06 Hct 24.7 % (36.0-47.0) L 03/20/23 04:06 MCV 83.5 fL (80.0-100.0) 03/20/23 04:06 MCH 28.2 pg (27.0-34.0) 03/20/23 04:06 MCHC 33.8 g/dL (33.0-35.0) 03/20/23 04:06 RDW 17.5 % (11.6-16.5) H 03/20/23 04:06 Plt Count 82 X10^3/uL (150.0-450.0) L 03/20/23 04:06 Plt Count Comment Decreased (ADEQUATE) A 03/19/23 04:26 MPV 10.3 fL (7.4-11.0) 03/20/23 04:06 Neut % (Auto) 59.2 % (42.0-75.0) 03/20/23 04:06 Lymph % (Auto) 28.4 % (21.0-51.0) 03/20/23 04:06 [place] % (Auto) 10.1 % (0.0-13.0) 03/20/23 04:06 Eos % (Auto) 1.8 % (0.9-2.9) 03/20/23 04:06 Baso % (Auto) 0.5 % (0.2-1.0) 03/20/23 04:06 Neut # (Auto) 3.2 x10^3/uL (2.2-4.8) 03/20/23 04:06 Lymph # (Auto) 1.5 X10^3/uL (1.3-2.9) 03/20/23 04:06 Real # (Auto) 0.5 x10^3/uL (0.3-0.8) 03/20/23 04:06 Eos # (Auto) 0.1 x10^3/uL (0.0-0.2) 03/20/23 04:06 Baso # (Auto) 0.0 X10^3/uL (0.0-0.1) 03/20/23 04:06 Absolute Nucleated RBC 0.0 /100WBC 03/20/23 04:06 Total Counted 100 03/19/23 04:26 Neutrophils % (Manual) 75 % (39-76) 03/19/23 04:26 Lymphocytes % (Manual) 20 % (13-43) 03/19/23 04:26 Monocytes % (Manual) 5 % (4-9) 03/19/23 04:26 Plt Morphology Comment Normal (NORMAL) 03/19/23 04:26 RBC Morphology Normal (NORMAL) 03/19/23 04:26 Sodium 140 mmol/L (136-145) 03/20/23 04:06 Corrected Sodium TNP 03/20/23 04:06 Potassium 3.8 mmol/L (3.5-5.1) 03/20/23 04:06 Chloride 107 mmol/L (98-107) 03/20/23 04:06 Carbon Dioxide 23.6 mmol/L (21-32) 03/20/23 04:06 BUN 14 mg/dL (7-18) 03/20/23 04:06 Creatinine 0.78 mg/dL (0.55-1.02) 03/20/23 04:06 Est GFR (MDRD) Af Amer > 60 (>60) 03/20/23 04:06 Est GFR (MDRD) Non-Af > 60 (>60) 03/20/23 04:06 Glucose 100 mg/dL (65-99) H 03/20/23 04:06 POC Glucose (mg/dL) 108 mg/dL (65-99) H 03/20/23 04:59 Lactic Acid 0.9 mmol/L (0.4-2.0) 03/18/23 04:48 Calcium 7.9 mg/dL (8.5-10.1) L 03/20/23 04:06 Corrected Calcium 9.7 mg/dL (8.5-10.1) 03/20/23 04:06 Magnesium 2.1 mg/dL (2.0-2.9) 03/20/23 04:06 Total Bilirubin 0.50 mg/dL (0.2-1.0) 03/20/23 04:06 AST 21 Units/L (15-37) 03/20/23 04:06 ALT 33 Units/L (12-78) 03/20/23 04:06 Alkaline Phosphatase 160 Units/L (46-116) H 03/20/23 04:06 Total Protein 5.4 g/dL (6.4-8.2) L 03/20/23 04:06 Albumin 1.7 g/dL (3.4-5.0) L 03/20/23 04:06 Globulin 3.7 g/dL (2.5-4.5) 03/20/23 04:06 Albumin/Globulin Ratio 0.5 Ratio (1.1-2.1) L 03/20/23 04:06 Lipase 542 Units/L (73-393) H 03/16/23 15:35 Specimen Type Catherized urine 03/16/23 18:10 Urine Color Dark yellow (YELLOW) 03/16/23 18:10 Urine Appearance Turbid (CLEAR) 03/16/23 18:10 Urine pH 5.0 (5.0 - 8.0) 03/16/23 18:10 Ur Specific [place] 1.025 (1.000-1.030) 03/16/23 18:10 Urine Protein 2+ (NEGATIVE) 03/16/23 18:10 Urine Glucose (UA) Negative (NEGATIVE) 03/16/23 18:10 Urine Ketones Negative (NEGATIVE) 03/16/23 18:10 Urine Blood 5+ (NEGATIVE) 03/16/23 18:10 Urine Nitrite Negative (NEGATIVE) 03/16/23 18:10 Urine Bilirubin 3+ (NEGATIVE) 03/16/23 18:10 Urine Urobilinogen 3+ (NORMAL) 03/16/23 18:10 Ur Leukocyte Esterase 3+ (NEGATIVE) 03/16/23 18:10 Urine RBC 5-10 /HPF (0-3) A 03/16/23 18:10 Urine WBC 30-50 /HPF (0-5) A 03/16/23 18:10 Ur Squamous Epith Cells Rare /HPF (NEGATIVE) 03/16/23 18:10 Ur Transition Epith Cell Few /HPF (NEGATIVE) 03/16/23 18:10 Amorphous Sediment 2+ /HPF (NEGATIVE) 03/16/23 18:10 Urine Bacteria 3+ /HPF (NEGATIVE) 03/16/23 18:10 Ur Culture Indicated? Yes/culture set up 03/16/23 18:10 Stl Occult Blood (IFOB) Negative (NEGATIVE) 03/17/23 07:50 Stool for White Cells Positive (NEGATIVE) A 03/17/23 07:50 Stl C. diff Tox B Gene Negative (NEGATIVE) 03/17/23 07:50 Stl C. diff [id number]-BI Presumptive negative (NEGATIVE) 03/17/23 07:50 Stool H. 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 same TPN ,nutritional support , somatostatin and local care of the fistula .. 2: UTI , on IV Antibiotics Problem Patient Problems: Patient Problems Acute hyponatremia (Acute) E87.1 Acute lower urinary tract infection (Acute) N39.0 Sepsis (Acute) A41.9 Urinary tract infection (Acute) N39.0 Open abdominal wall wound (Acute) S31.109A
[2023-03-20] MEDS ORDERED: DRUG FILTER EXTENSION SET ONE (09:49)
[2023-03-20] MEDS: CLINIMIX 5 %/20 % 1,000 ML with MVI INJ (ADULT) 10 ML, TPN ELECTROLYTES 20 ML, POTASSIU... IV SCH ×5 (09:59)
[2023-03-20] MEDS: ZOFRAN INJ 4 MG VIAL IVP PRN (10:02)
[2023-03-20] MEDS: LEVAQUIN PREMIX IV 750 MG 750 MG/150 ML BAG IV SCH (10:02)
[2023-03-20] MEDS: REQUIP PO PRN ×2 (10:03→21:41)
[2023-03-20] MEDS: D5 NS 1,000 ML IV 1,000 ML IV SCH (18:44)
[2023-03-20] MEDS: ZYVOX 600MG IV 600 MG/300 ML BAG IV SCH (21:40)
[2023-03-20] MEDS: LIPOSYN III 20% 250ML 250 ML IV SCH (21:40)
[2023-03-21] MEDS ORDERED: STERILE WATER IRRIGATION IR ONE ×2 (04:35→05:02)
[2023-03-21 05:17] LABS: BASOPHILS % (AUTO) 0.5 % (0.2-1.0); EOSINOPHILS # (AUTO) 0.1 x10^3/uL (0.0-0.2); EOSINOPHILS % (AUTO) 1.8 % (0.9-2.9); HEMATOCRIT 25.9 % (36.0-47.0); LYMPHOCYTES % (AUTO) 26.2 % (21.0-51.0); MEAN CORPUSCULAR HEMOGLOBIN 28.7 pg (27.0-34.0); MEAN CORPUSCULAR HGB CONC 34.6 g/dL (33.0-35.0); MEAN CORPUSCULAR VOLUME 82.8 fL (80.0-100.0); MEAN PLATELET VOLUME 9.6 fL (7.4-11.0); MONOCYTES # (AUTO) 0.7 x10^3/uL (0.3-0.8); MONOCYTES % (AUTO) 8.5 % (0.0-13.0); NEUTROPHILS # (AUTO) 4.9 x10^3/uL (2.2-4.8); PLATELET COUNT 133 X10^3/uL (150.0-450.0); RED BLOOD COUNT 3.13 X10^6/uL (3.5-5.4); RED CELL DISTRIBUTION WIDTH 17.3 % (11.6-16.5); WHITE BLOOD COUNT 7.7 X10^3/uL (3.6-10.0)
[2023-03-21 05:26] LABS: ALANINE AMINOTRANSFERASE 49 Units/L (12-78); ALBUMIN 1.8 g/dL (3.4-5.0); ALKALINE PHOSPHATASE 181 Units/L (46-116); ASPARTATE AMINO TRANSFERASE 42 Units/L (15-37); BLOOD UREA NITROGEN 19 mg/dL (7-18); CALCIUM 7.9 mg/dL (8.5-10.1); CARBON DIOXIDE 23.6 mmol/L (21-32); CHLORIDE 104 mmol/L (98-107); COR CA(FOR HYPOALB) 9.7 mg/dL (8.5-10.1); COR NA(FOR HYPERGLY) 136 mmol/L (136-145); CREATININE 0.92 mg/dL (0.55-1.02); GLUCOSE 113 mg/dL (65-99); SODIUM 136 mmol/L (136-145); TOTAL PROTEIN 5.5 g/dL (6.4-8.2); eGFR NON BLACK RACES > 60 (>60)
[2023-03-21] MEDS: D5 NS 1,000 ML IV 1,000 ML IV SCH ×2 (06:01→09:57)
[2023-03-21] MEDS: TYLENOL 325 MG TAB PO PRN ×2 (08:59→18:21)
[2023-03-21] MEDS: LEVAQUIN PREMIX IV 750 MG 750 MG/150 ML BAG IV SCH (10:34)
[2023-03-21] MEDS: ZYVOX 600MG IV 600 MG/300 ML BAG IV SCH ×2 (10:35→21:11)
[2023-03-21] MEDS: CLINIMIX 5 %/20 % 1,000 ML with MVI INJ (ADULT) 10 ML, TPN ELECTROLYTES 20 ML, POTASSIU... IV SCH ×5 (10:42)
[2023-03-21] MEDS ORDERED: DRUG FILTER EXTENSION SET ONE (10:49)
--- NOTE | 2023-03-21 17:44 | PCM.PROG ---
Progress Note - Progress Note for Day of Date of Exam: 03/21/23 - Subjective Subjective: The patient is a 58-year-old white female who was admitted with sepsis. She has been on aggressive IV hydration and antibiotic therapy since admission. Her blood cultures and urine cultures grew out enterococcus. She also had an abdominal wound culture and it was growing staph epi as well as some yeast. Zivox was added to her medication regimen. The abdominal wound is as a result of a fistula that is draining. Dr. Leone has been consulted and added sandostatin as well as wound care. She is on TPN which we have continued. The patient is to have outpatient labs to send to her compound pharmacy so we will get that setup, so whenever she is ready for discharge they will have her TPNs made for her. Pt's repeat set of blood cultures obtained on 03/18 resulted positive for enterococcus also. - Past Medical Family Social History Past Med/Fam/Surg Hx: No changes since H&P Allergies: Allergies amoxicillin Allergy (Verified 03/11/23 12:48) - Review of Systems ROS: No change since H&P - Vital Signs and I&O's Vital Signs: Vital Signs Temperature 97.6 F Temperature 98.0 F Pulse Rate 76 Pulse Rate 72 Pulse Rate 76 Pulse Rate 76 Pulse Rate 75 Pulse Rate 75 Pulse Rate 77 Pulse Rate 76 Pulse Rate 76 Respiratory Rate 21 Respiratory Rate 25 Respiratory Rate 22 Respiratory Rate 21 Respiratory Rate 22 Respiratory Rate 21 Respiratory Rate 28 Respiratory Rate 16 Respiratory Rate 16 Respiratory Rate 20 Blood Pressure 126/79 Blood Pressure 127/73 Blood Pressure 125/79 Blood Pressure 119/92 Blood Pressure 132/78 Blood Pressure 123/76 Blood Pressure 130/85 Blood Pressure 130/85 O2 Sat by Pulse Oximetry 99 O2 Sat by Pulse Oximetry 98 O2 Sat by Pulse Oximetry 98 O2 Sat by Pulse Oximetry 98 O2 Sat by Pulse Oximetry 98 O2 Sat by Pulse Oximetry 98 O2 Sat by Pulse Oximetry 97 O2 Sat by Pulse Oximetry 97 O2 Sat by Pulse Oximetry 97 Intake and Output: Intake & Output 03/19/23 03/20/23 03/21/23 03/22/23 11:59 11:59 11:59 11:59 Intake Total 2614 / 2614 973 / 973 2357 / 2357 1193 / 1193 Output Total 2400 / 2400 2375 / 2375 2550 / 2550 675 / 675 Balance 214 / 214 -1402 / -1402 -193 / -193 518 / 518 - Physical Exam Oriented: Normal Eyes: Normal Ear: Normal Nose: Normal Throat: Normal Respiratory: Diminished Cardiovascular: Normal Auscultation: Bowel Sounds: Decreased Tenderness: Diffuse, Mild Skin: Decreased Turgur, Wound (14 x 4 cm with visible mesh and fistula draining in the middle) Musculoskeletal: Normal Psychiatric: Anxiety Affect: Anxious Speech Pattern: Clear, Appropriate - Laboratory and Diagnostics Result Diagrams: 03/21/23 05:00 03/21/23 05:00 Labs: 03/18/23 11:35 Blood Blood Culture - Final Enterococcus Faecalis 03/18/23 11:20 Blood Blood Culture - Final Enterococcus Faecalis 03/17/23 07:50 Abdomen Wound Gram Stain - Final 03/17/23 07:50 Abdomen Wound Culture - Preliminary Staphylococcus Epidermidis 03/16/23 18:10 Urine,Catheterized Urine Culture - Final Enterococcus Faecalis 03/16/23 15:45 Blood Blood Culture - Final Enterococcus Faecalis 03/16/23 15:35 Blood Blood Culture - Final Enterococcus Faecalis 03/17/23 07:50 Stool - Final Laboratory WBC 7.7 X10^3/uL (3.6-10.0) 03/21/23 05:00 RBC 3.13 X10^6/uL (3.5-5.4) L 03/21/23 05:00 Hgb 9.0 g/dL (12.0-16.0) L 03/21/23 05:00 Hct 25.9 % (36.0-47.0) L 03/21/23 05:00 MCV 82.8 fL (80.0-100.0) 03/21/23 05:00 MCH 28.7 pg (27.0-34.0) 03/21/23 05:00 MCHC 34.6 g/dL (33.0-35.0) 03/21/23 05:00 RDW 17.3 % (11.6-16.5) H 03/21/23 05:00 Plt Count 133 X10^3/uL (150.0-450.0) L 03/21/23 05:00 Plt Count Comment Decreased (ADEQUATE) A 03/19/23 04:26 MPV 9.6 fL (7.4-11.0) 03/21/23 05:00 Neut % (Auto) 63.0 % (42.0-75.0) 03/21/23 05:00 Lymph % (Auto) 26.2 % (21.0-51.0) 03/21/23 05:00 [place] % (Auto) 8.5 % (0.0-13.0) 03/21/23 05:00 Eos % (Auto) 1.8 % (0.9-2.9) 03/21/23 05:00 Baso % (Auto) 0.5 % (0.2-1.0) 03/21/23 05:00 Neut # (Auto) 4.9 x10^3/uL (2.2-4.8) H 03/21/23 05:00 Lymph # (Auto) 2.0 X10^3/uL (1.3-2.9) 03/21/23 05:00 [place] # (Auto) 0.7 x10^3/uL (0.3-0.8) 03/21/23 05:00 Eos # (Auto) 0.1 x10^3/uL (0.0-0.2) 03/21/23 05:00 Baso # (Auto) 0.0 X10^3/uL (0.0-0.1) 03/21/23 05:00 Absolute Nucleated RBC 0.0 /100WBC 03/21/23 05:00 Total Counted 100 03/19/23 04:26 Neutrophils % (Manual) 75 % (39-76) 03/19/23 04:26 Lymphocytes % (Manual) 20 % (13-43) 03/19/23 04:26 Monocytes % (Manual) 5 % (4-9) 03/19/23 04:26 Plt Morphology Comment Normal (NORMAL) 03/19/23 04:26 RBC Morphology Normal (NORMAL) 03/19/23 04:26 Sodium 136 mmol/L (136-145) 03/21/23 05:00 Corrected Sodium 136 mmol/L (136-145) 03/21/23 05:00 Potassium 4.0 mmol/L (3.5-5.1) 03/21/23 05:00 Chloride 104 mmol/L (98-107) 03/21/23 05:00 Carbon Dioxide 23.6 mmol/L (21-32) 03/21/23 05:00 BUN 19 mg/dL (7-18) H 03/21/23 05:00 Creatinine 0.92 mg/dL (0.55-1.02) 03/21/23 05:00 Est GFR (MDRD) Af Amer > 60 (>60) 03/21/23 05:00 Est GFR (MDRD) Non-Af > 60 (>60) 03/21/23 05:00 Glucose 113 mg/dL (65-99) H 03/21/23 05:00 POC Glucose (mg/dL) 137 mg/dL (65-99) H 03/21/23 15:37 Lactic Acid 0.9 mmol/L (0.4-2.0) 03/18/23 04:48 Calcium 7.9 mg/dL (8.5-10.1) L 03/21/23 05:00 Corrected Calcium 9.7 mg/dL (8.5-10.1) 03/21/23 05:00 Magnesium 2.1 mg/dL (2.0-2.9) 03/20/23 04:06 Total Bilirubin 0.80 mg/dL (0.2-1.0) 03/21/23 05:00 AST 42 Units/L (15-37) H 03/21/23 05:00 ALT 49 Units/L (12-78) 03/21/23 05:00 Alkaline Phosphatase 181 Units/L (46-116) H 03/21/23 05:00 Total Protein 5.5 g/dL (6.4-8.2) L 03/21/23 05:00 Albumin 1.8 g/dL (3.4-5.0) L 03/21/23 05:00 Globulin 3.7 g/dL (2.5-4.5) 03/21/23 05:00 Albumin/Globulin Ratio 0.5 Ratio (1.1-2.1) L 03/21/23 05:00 Lipase 542 Units/L (73-393) H 03/16/23 15:35 Specimen Type Catherized urine 03/16/23 18:10 Urine Color Dark yellow (YELLOW) 03/16/23 18:10 Urine Appearance Turbid (CLEAR) 03/16/23 18:10 Urine pH 5.0 (5.0 - 8.0) 03/16/23 18:10 Ur Specific [place] 1.025 (1.000-1.030) 03/16/23 18:10 Urine Protein 2+ (NEGATIVE) 03/16/23 18:10 Urine Glucose (UA) Negative (NEGATIVE) 03/16/23 18:10 Urine Ketones Negative (NEGATIVE) 03/16/23 18:10 Urine Blood 5+ (NEGATIVE) 03/16/23 18:10 Urine Nitrite Negative (NEGATIVE) 03/16/23 18:10 Urine Bilirubin 3+ (NEGATIVE) 03/16/23 18:10 Urine Urobilinogen 3+ (NORMAL) 03/16/23 18:10 Ur Leukocyte Esterase 3+ (NEGATIVE) 03/16/23 18:10 Urine RBC 5-10 /HPF (0-3) A 03/16/23 18:10 Urine WBC 30-50 /HPF (0-5) A 03/16/23 18:10 Ur Squamous Epith Cells Rare /HPF (NEGATIVE) 03/16/23 18:10 Ur Transition Epith Cell Few /HPF (NEGATIVE) 03/16/23 18:10 Amorphous Sediment 2+ /HPF (NEGATIVE) 03/16/23 18:10 Urine Bacteria 3+ /HPF (NEGATIVE) 03/16/23 18:10 Ur Culture Indicated? Yes/culture set up 03/16/23 18:10 Stl Occult Blood (IFOB) Negative (NEGATIVE) 03/17/23 07:50 Stool for White Cells Positive (NEGATIVE) A 03/17/23 07:50 Stl C. diff Tox B Gene Negative (NEGATIVE) 03/17/23 07:50 Stl C. diff [id number]-BI Presumptive negative (NEGATIVE) 03/17/23 07:50 Stool H. pylori Ag Negative (NEGATIVE) 03/17/23 07:50 Cryptosporid parvum Ag Negative (NEGATIVE) 03/17/23 07:50 Giardia lamblia Ag Negative (NEGATIVE) 03/17/23 07:50 Infect Dis PCR Plus See scanned report 03/17/23 07:50 - Plan (1) Sepsis Status: Acute Plan: ICU. BLOOD, URINE AND WOUND CULTURE ON ADMISSION. IV HYDRATION, STRICT I&OS. BP CONTROL, CARDIAC MONITORING. IV ZYVOX AND LEVAQUIN. PHYSICAL THERAPY. CONTINUE TPN (2) Urinary tract infection Status: Acute (3) Open abdominal wall wound Status: Acute (4) Acute hyponatremia Status: Acute
--- NOTE | 2023-03-21 18:49 | RAD ---
HISTORYSEPSISSTUDYCHEST, 1 VIEWCOMPARISONFrontal chest radiograph March 18, 2023FINDINGSPICC line is present with tip overlying superior vena cava. Midline trachea. The heart size is prominent without failure. The lungs are well inflated and grossly clear.IMPRESSIONNothing acuteElectronically signed by: Domingo Olivares (Mar 21, 2023 18:48:17)
[2023-03-21] MEDS: REQUIP PO PRN (21:12)
[2023-03-21] MEDS: ZOFRAN INJ 4 MG VIAL IVP PRN (21:12)
[2023-03-21] MEDS: LIPOSYN III 20% 250ML 250 ML IV SCH (21:36)
[2023-03-22] MEDS: TYLENOL 325 MG TAB PO PRN ×2 (00:21→19:53)
[2023-03-22 05:11] LABS: BASOPHILS % (AUTO) 0.3 % (0.2-1.0); EOSINOPHILS # (AUTO) 0.1 x10^3/uL (0.0-0.2); EOSINOPHILS % (AUTO) 0.8 % (0.9-2.9); HEMATOCRIT 27.2 % (36.0-47.0); HEMOGLOBIN 9.2 g/dL (12.0-16.0); LYMPHOCYTES # (AUTO) 1.1 X10^3/uL (1.3-2.9); LYMPHOCYTES % (AUTO) 9.6 % (21.0-51.0); MEAN CORPUSCULAR HEMOGLOBIN 28.1 pg (27.0-34.0); MEAN CORPUSCULAR HGB CONC 33.8 g/dL (33.0-35.0); MEAN PLATELET VOLUME 9.7 fL (7.4-11.0); MONOCYTES # (AUTO) 0.9 x10^3/uL (0.3-0.8); MONOCYTES % (AUTO) 7.7 % (0.0-13.0); NEUTROPHILS # (AUTO) 9.3 x10^3/uL (2.2-4.8); NEUTROPHILS % (AUTO) 81.6 % (42.0-75.0); PLATELET COUNT 151 X10^3/uL (150.0-450.0); RED BLOOD COUNT 3.27 X10^6/uL (3.5-5.4); RED CELL DISTRIBUTION WIDTH 17.7 % (11.6-16.5); WHITE BLOOD COUNT 11.4 X10^3/uL (3.6-10.0)
[2023-03-22 05:22] LABS: ALANINE AMINOTRANSFERASE 45 Units/L (12-78); ALBUMIN 1.9 g/dL (3.4-5.0); ALKALINE PHOSPHATASE 186 Units/L (46-116); ASPARTATE AMINO TRANSFERASE 30 Units/L (15-37); BLOOD UREA NITROGEN 19 mg/dL (7-18); CALCIUM 7.8 mg/dL (8.5-10.1); CARBON DIOXIDE 22.7 mmol/L (21-32); CHLORIDE 105 mmol/L (98-107); COR CA(FOR HYPOALB) 9.5 mg/dL (8.5-10.1); COR NA(FOR HYPERGLY) 136 mmol/L (136-145); CREATININE 1.07 mg/dL (0.55-1.02); GLUCOSE 116 mg/dL (65-99); POTASSIUM 4.1 mmol/L (3.5-5.1); SODIUM 136 mmol/L (136-145); TOTAL PROTEIN 5.7 g/dL (6.4-8.2); eGFR NON BLACK RACES 56 (>60)
[2023-03-22] MEDS ORDERED: DRUG FILTER EXTENSION SET ONE (09:52)
[2023-03-22] MEDS: CLINIMIX 5 %/20 % 1,000 ML with MVI INJ (ADULT) 10 ML, TPN ELECTROLYTES 20 ML, POTASSIU... IV SCH ×5 (10:09)
[2023-03-22] MEDS: FLEXERIL TAB 10 MG PO PRN ×2 (10:09→17:48)
[2023-03-22] MEDS: ZYVOX 600MG IV 600 MG/300 ML BAG IV SCH ×2 (10:10→20:40)
[2023-03-22] MEDS: LEVAQUIN PREMIX IV 750 MG 750 MG/150 ML BAG IV SCH (10:10)
[2023-03-22] MEDS: D5 NS 1,000 ML IV 1,000 ML IV SCH (10:32)
--- NOTE | 2023-03-22 10:43 | DR.PROGNOT ---
HOSPITAL PROGRESS NOTE Progress Note for Day of: Progress Note Date: 03/22/23 Chief Complaint Chief Complaint: doing fairly well , no nausea or vomiting today ..tolerating TPN . mild drainage from fistula site . Album 1.9.. BUN, Creat ,normal .. WBC 11.4.. CRP 60.5 Afebrile.. Past Medical Family Social History Past Med/Fam/Surg Hx: No changes since H&P Allergies: Allergies amoxicillin Allergy (Verified 03/11/23 12:48) Review Of Systems ROS: No change since H&P Vital Signs Vital Signs: Vital Signs Temperature 98.2 F Pulse Rate 74 Pulse Rate 76 Pulse Rate 81 Pulse Rate 75 Pulse Rate 69 Pulse Rate 79 Pulse Rate 81 Pulse Rate 86 Respiratory Rate 22 Respiratory Rate 21 Respiratory Rate 26 Respiratory Rate 20 Respiratory Rate 23 Respiratory Rate 25 Respiratory Rate 22 Respiratory Rate 21 Blood Pressure 97/56 Blood Pressure 114/59 Blood Pressure 110/68 Blood Pressure 105/54 Blood Pressure 109/53 Blood Pressure 93/54 Blood Pressure 88/50 Blood Pressure 113/62 O2 Sat by Pulse Oximetry 96 O2 Sat by Pulse Oximetry 97 O2 Sat by Pulse Oximetry 98 O2 Sat by Pulse Oximetry 96 O2 Sat by Pulse Oximetry 94 O2 Sat by Pulse Oximetry 97 O2 Sat by Pulse Oximetry 95 O2 Sat by Pulse Oximetry 96 Physical Exam Oriented: Normal Eyes: Normal Ear: Normal Nose: Normal Throat: Normal Respiratory: Diminished Cardiovascular: Normal GI:Auscultation: Other (Colostomy is working well .soft flat , nontender abdomen with 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) GI: Tenderness: Diffuse and Mild Skin: Decreased Turgur and Wound (14 x 4 cm with visible mesh and fistula draining in the middle) Musculoskeletal: Normal Psychiatric: Anxiety Affect: Anxious Speech Pattern: Clear and Appropriate Laboratory and Diagnostics 03/22/23 04:00 03/22/23 04:00 Labs: 03/18/23 11:35 Blood Blood Culture - Final Enterococcus Faecalis 03/18/23 11:20 Blood Blood Culture - Final Enterococcus Faecalis 03/17/23 07:50 Abdomen Wound Gram Stain - Final 03/17/23 07:50 Abdomen Wound Culture - Preliminary Staphylococcus Epidermidis 03/16/23 18:10 Urine,Catheterized Urine Culture - Final Enterococcus Faecalis 03/16/23 15:45 Blood Blood Culture - Final Enterococcus Faecalis 03/16/23 15:35 Blood Blood Culture - Final Enterococcus Faecalis 03/17/23 07:50 Stool - Final Laboratory WBC 11.4 X10^3/uL (3.6-10.0) H 03/22/23 04:00 RBC 3.27 X10^6/uL (3.5-5.4) L 03/22/23 04:00 Hgb 9.2 g/dL (12.0-16.0) L 03/22/23 04:00 Hct 27.2 % (36.0-47.0) L 03/22/23 04:00 MCV 83.0 fL (80.0-100.0) 03/22/23 04:00 MCH 28.1 pg (27.0-34.0) 03/22/23 04:00 MCHC 33.8 g/dL (33.0-35.0) 03/22/23 04:00 RDW 17.7 % (11.6-16.5) H 03/22/23 04:00 Plt Count 151 X10^3/uL (150.0-450.0) 03/22/23 04:00 Plt Count Comment Decreased (ADEQUATE) A 03/19/23 04:26 MPV 9.7 fL (7.4-11.0) 03/22/23 04:00 Neut % (Auto) 81.6 % (42.0-75.0) H 03/22/23 04:00 Lymph % (Auto) 9.6 % (21.0-51.0) L 03/22/23 04:00 [place] % (Auto) 7.7 % (0.0-13.0) 03/22/23 04:00 Eos % (Auto) 0.8 % (0.9-2.9) L 03/22/23 04:00 Baso % (Auto) 0.3 % (0.2-1.0) 03/22/23 04:00 Neut # (Auto) 9.3 x10^3/uL (2.2-4.8) H 03/22/23 04:00 Lymph # (Auto) 1.1 X10^3/uL (1.3-2.9) L 03/22/23 04:00 [place] # (Auto) 0.9 x10^3/uL (0.3-0.8) H 03/22/23 04:00 Eos # (Auto) 0.1 x10^3/uL (0.0-0.2) 03/22/23 04:00 Baso # (Auto) 0.0 X10^3/uL (0.0-0.1) 03/22/23 04:00 Absolute Nucleated RBC 0.0 /100WBC 03/22/23 04:00 Total Counted 100 03/19/23 04:26 Neutrophils % (Manual) 75 % (39-76) 03/19/23 04:26 Lymphocytes % (Manual) 20 % (13-43) 03/19/23 04:26 Monocytes % (Manual) 5 % (4-9) 03/19/23 04:26 Plt Morphology Comment Normal (NORMAL) 03/19/23 04:26 RBC Morphology Normal (NORMAL) 03/19/23 04:26 ESR 42 MM/HOUR (0-20) H 03/22/23 07:35 Sodium 136 mmol/L (136-145) 03/22/23 04:00 Corrected Sodium 136 mmol/L (136-145) 03/22/23 04:00 Potassium 4.1 mmol/L (3.5-5.1) 03/22/23 04:00 Chloride 105 mmol/L (98-107) 03/22/23 04:00 Carbon Dioxide 22.7 mmol/L (21-32) 03/22/23 04:00 BUN 19 mg/dL (7-18) H 03/22/23 04:00 Creatinine 1.07 mg/dL (0.55-1.02) H 03/22/23 04:00 Est GFR (MDRD) Af Amer > 60 (>60) 03/22/23 04:00 Est GFR (MDRD) Non-Af 56 (>60) L 03/22/23 04:00 Glucose 116 mg/dL (65-99) H 03/22/23 04:00 POC Glucose (mg/dL) 118 mg/dL (65-99) H 03/22/23 05:24 Lactic Acid 1.5 mmol/L (0.4-2.0) 03/22/23 07:35 Calcium 7.8 mg/dL (8.5-10.1) L 03/22/23 04:00 Corrected Calcium 9.5 mg/dL (8.5-10.1) 03/22/23 04:00 Magnesium 2.1 mg/dL (2.0-2.9) 03/20/23 04:06 Iron 13 ug/dL (50-175) L 03/22/23 04:00 TIBC 180 ug/dL (250-450) L 03/22/23 04:00 Transferrin 142 mg/dL (202-364) L 03/22/23 04:00 Ferritin 333 ng/mL (8-252) H 03/22/23 04:00 Total Bilirubin 0.70 mg/dL (0.2-1.0) 03/22/23 04:00 AST 30 Units/L (15-37) 03/22/23 04:00 ALT 45 Units/L (12-78) 03/22/23 04:00 Alkaline Phosphatase 186 Units/L (46-116) H 03/22/23 04:00 C-Reactive Protein 60.50 mg/L (0-3.0) H 03/22/23 07:35 Total Protein 5.7 g/dL (6.4-8.2) L 03/22/23 04:00 Albumin 1.9 g/dL (3.4-5.0) L 03/22/23 04:00 Globulin 3.8 g/dL (2.5-4.5) 03/22/23 04:00 Albumin/Globulin Ratio 0.5 Ratio (1.1-2.1) L 03/22/23 04:00 Lipase 542 Units/L (73-393) H 03/16/23 15:35 Vitamin B12 1025 pg/mL (193-986) H 03/22/23 04:00 Folate 14.4 ng/mL (>8.6) 03/22/23 04:00 Specimen Type Catherized urine 03/16/23 18:10 Urine Color Dark yellow (YELLOW) 03/16/23 18:10 Urine Appearance Turbid (CLEAR) 03/16/23 18:10 Urine pH 5.0 (5.0 - 8.0) 03/16/23 18:10 Ur Specific [place] 1.025 (1.000-1.030) 03/16/23 18:10 Urine Protein 2+ (NEGATIVE) 03/16/23 18:10 Urine Glucose (UA) Negative (NEGATIVE) 03/16/23 18:10 Urine Ketones Negative (NEGATIVE) 03/16/23 18:10 Urine Blood 5+ (NEGATIVE) 03/16/23 18:10 Urine Nitrite Negative (NEGATIVE) 03/16/23 18:10 Urine Bilirubin 3+ (NEGATIVE) 03/16/23 18:10 Urine Urobilinogen 3+ (NORMAL) 03/16/23 18:10 Ur Leukocyte Esterase 3+ (NEGATIVE) 03/16/23 18:10 Urine RBC 5-10 /HPF (0-3) A 03/16/23 18:10 Urine WBC 30-50 /HPF (0-5) A 03/16/23 18:10 Ur Squamous Epith Cells Rare /HPF (NEGATIVE) 03/16/23 18:10 Ur Transition Epith Cell Few /HPF (NEGATIVE) 03/16/23 18:10 Amorphous Sediment 2+ /HPF (NEGATIVE) 03/16/23 18:10 Urine Bacteria 3+ /HPF (NEGATIVE) 03/16/23 18:10 Ur Culture Indicated? Yes/culture set up 03/16/23 18:10 Stl Occult Blood (IFOB) Negative (NEGATIVE) 03/17/23 07:50 Stool for White Cells Positive (NEGATIVE) A 03/17/23 07:50 Stl C. diff Tox B Gene Negative (NEGATIVE) 03/17/23 07:50 Stl C. diff [id number] Presumptive negative (NEGATIVE) 03/17/23 07:50 Stool H. 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 same TPN ,nutritional support , somatostatin and local care of the fistula .. 2: UTI , on IV Antibiotics Problem Patient Problems: Patient Problems Acute hyponatremia (Acute) E87.1 Acute lower urinary tract infection (Acute) N39.0 Sepsis (Acute) A41.9 Urinary tract infection (Acute) N39.0 Open abdominal wall wound (Acute) S31.109A
[2023-03-22] MEDS: ZOFRAN INJ 4 MG VIAL IVP PRN (19:53)
[2023-03-22] MEDS: REQUIP PO PRN (20:38)
[2023-03-22] MEDS: LIPOSYN III 20% 250ML 250 ML IV SCH (20:40)
[2023-03-23] MEDS: FLEXERIL TAB 10 MG PO PRN (01:47)
[2023-03-23] MEDS: D5 NS 1,000 ML IV 1,000 ML IV SCH ×2 (02:20→09:40)
[2023-03-23 05:02] LABS: BASOPHILS % (AUTO) 0.2 % (0.2-1.0); EOSINOPHILS # (AUTO) 0.1 x10^3/uL (0.0-0.2); EOSINOPHILS % (AUTO) 1.1 % (0.9-2.9); HEMATOCRIT 24.4 % (36.0-47.0); HEMOGLOBIN 8.5 g/dL (12.0-16.0); LYMPHOCYTES # (AUTO) 1.9 X10^3/uL (1.3-2.9); LYMPHOCYTES % (AUTO) 19.4 % (21.0-51.0); MEAN CORPUSCULAR HGB CONC 34.9 g/dL (33.0-35.0); MEAN CORPUSCULAR VOLUME 83.1 fL (80.0-100.0); MEAN PLATELET VOLUME 9.2 fL (7.4-11.0); MONOCYTES # (AUTO) 0.9 x10^3/uL (0.3-0.8); MONOCYTES % (AUTO) 8.8 % (0.0-13.0); NEUTROPHILS % (AUTO) 70.5 % (42.0-75.0); PLATELET COUNT 192 X10^3/uL (150.0-450.0); RED BLOOD COUNT 2.94 X10^6/uL (3.5-5.4); RED CELL DISTRIBUTION WIDTH 17.7 % (11.6-16.5)
[2023-03-23 05:15] LABS: ALANINE AMINOTRANSFERASE 38 Units/L (12-78); ALBUMIN 1.8 g/dL (3.4-5.0); ALKALINE PHOSPHATASE 182 Units/L (46-116); ASPARTATE AMINO TRANSFERASE 27 Units/L (15-37); BLOOD UREA NITROGEN 16 mg/dL (7-18); CALCIUM 7.7 mg/dL (8.5-10.1); CHLORIDE 105 mmol/L (98-107); COR CA(FOR HYPOALB) 9.5 mg/dL (8.5-10.1); COR NA(FOR HYPERGLY) 137 mmol/L (136-145); CREATININE 0.99 mg/dL (0.55-1.02); GLUCOSE 114 mg/dL (65-99); POTASSIUM 3.9 mmol/L (3.5-5.1); SODIUM 137 mmol/L (136-145); TOTAL PROTEIN 5.6 g/dL (6.4-8.2); eGFR NON BLACK RACES > 60 (>60)
--- NOTE | 2023-03-23 07:53 | DR.PROGNOT ---
HOSPITAL PROGRESS NOTE Progress Note for Day of: Progress Note Date: 03/23/23 Chief Complaint Chief Complaint: doing fairly well , no nausea or vomiting today ..tolerating TPN . moderate drainage from fistula site . Album 1.8.. BUN, Creat ,normal .. WBC 10.0 .. CRP 60.5 Afebrile.. Past Medical Family Social History Past Med/Fam/Surg Hx: No changes since H&P Allergies: Allergies amoxicillin Allergy (Verified 03/11/23 12:48) Review Of Systems ROS: No change since H&P Vital Signs Vital Signs: Vital Signs Temperature 98.7 F Pulse Rate 75 Pulse Rate 78 Pulse Rate 78 Pulse Rate 79 Pulse Rate 76 Pulse Rate 74 Pulse Rate 76 Pulse Rate 80 Pulse Rate 80 Pulse Rate 79 Pulse Rate 79 Pulse Rate 84 Pulse Rate 81 Pulse Rate 81 Respiratory Rate 21 Respiratory Rate 25 Respiratory Rate 24 Respiratory Rate 23 Respiratory Rate 22 Respiratory Rate 22 Respiratory Rate 24 Respiratory Rate 24 Respiratory Rate 26 Respiratory Rate 22 Respiratory Rate 23 Respiratory Rate 32 Respiratory Rate 23 Respiratory Rate 25 Blood Pressure 105/59 Blood Pressure 94/59 Blood Pressure 87/54 Blood Pressure 100/55 Blood Pressure 82/46 Blood Pressure 80/48 Blood Pressure 82/43 Blood Pressure 80/48 Blood Pressure 77/42 Blood Pressure 85/51 Blood Pressure 78/48 Blood Pressure 80/47 O2 Sat by Pulse Oximetry 99 O2 Sat by Pulse Oximetry 95 O2 Sat by Pulse Oximetry 95 O2 Sat by Pulse Oximetry 95 O2 Sat by Pulse Oximetry 97 O2 Sat by Pulse Oximetry 98 O2 Sat by Pulse Oximetry 95 O2 Sat by Pulse Oximetry 95 O2 Sat by Pulse Oximetry 99 O2 Sat by Pulse Oximetry 94 O2 Sat by Pulse Oximetry 94 O2 Sat by Pulse Oximetry 96 O2 Sat by Pulse Oximetry 95 O2 Sat by Pulse Oximetry 95 Physical Exam Oriented: Normal Eyes: Normal Ear: Normal Nose: Normal Throat: Normal Respiratory: Diminished Cardiovascular: Normal GI:Auscultation: Other (Colostomy is working well .soft flat , nontender abdomen with 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) GI: Tenderness: Diffuse and Mild Skin: Decreased Turgur and Wound (14 x 4 cm with visible mesh and fistula draining in the middle) Musculoskeletal: Normal Psychiatric: Anxiety Affect: Anxious Speech Pattern: Clear and Appropriate Laboratory and Diagnostics 03/23/23 04:23 03/23/23 04:23 Labs: 03/18/23 11:35 Blood Blood Culture - Final Enterococcus Faecalis 03/18/23 11:20 Blood Blood Culture - Final Enterococcus Faecalis 03/17/23 07:50 Abdomen Wound Gram Stain - Final 03/17/23 07:50 Abdomen Wound Culture - Preliminary Staphylococcus Epidermidis 03/16/23 18:10 Urine,Catheterized Urine Culture - Final Enterococcus Faecalis 03/16/23 15:45 Blood Blood Culture - Final Enterococcus Faecalis 03/16/23 15:35 Blood Blood Culture - Final Enterococcus Faecalis 03/17/23 07:50 Stool - Final Laboratory WBC 10.0 X10^3/uL (3.6-10.0) 03/23/23 04:23 RBC 2.94 X10^6/uL (3.5-5.4) L 03/23/23 04: Hgb 8.5 g/dL (12.0-16.0) L 03/23/23 04:23 Hct 24.4 % (36.0-47.0) L 03/23/23 04:23 MCV 83.1 fL (80.0-100.0) 03/23/23 04:23 MCH 29.0 pg (27.0-34.0) 03/23/23 04:23 MCHC 34.9 g/dL (33.0-35.0) 03/23/23 04: RDW 17.7 % (11.6-16.5) H 03/23/23 04:23 Plt Count 192 X10^3/uL (150.0-450.0) 03/23/23 04:23 Plt Count Comment Decreased (ADEQUATE) A 03/19/23 04: MPV 9.2 fL (7.4-11.0) 03/23/23 04:23 Neut % (Auto) 70.5 % (42.0-75.0) 03/23/23 04: Lymph % (Auto) 19.4 % (21.0-51.0) L 03/23/23 04: [place] % (Auto) 8.8 % (0.0-13.0) 03/23/23 04:23 Eos % (Auto) 1.1 % (0.9-2.9) 03/23/23 04:23 Baso % (Auto) 0.2 % (0.2-1.0) 03/23/23 04:23 Neut # (Auto) 7.0 x10^3/uL (2.2-4.8) H 03/23/23 04:23 Lymph # (Auto) 1.9 X10^3/uL (1.3-2.9) 03/23/23 04:23 [place] # (Auto) 0.9 x10^3/uL (0.3-0.8) H 03/23/23 04:23 Eos # (Auto) 0.1 x10^3/uL (0.0-0.2) 03/23/23 04:23 Baso # (Auto) 0.0 X10^3/uL (0.0-0.1) 03/23/23 04:23 Absolute Nucleated RBC 0.0 /100WBC 03/23/23 04:23 Total Counted 100 03/19/23 04:26 Neutrophils % (Manual) 75 % (39-76) 03/19/23 04:26 Lymphocytes % (Manual) 20 % (13-43) 03/19/23 04:26 Monocytes % (Manual) 5 % (4-9) 03/19/23 04:26 Plt Morphology Comment Normal (NORMAL) 03/19/23 04:26 RBC Morphology Normal (NORMAL) 03/19/23 04:26 ESR 42 MM/HOUR (0-20) H 03/22/23 07:35 Sodium 137 mmol/L (136-145) 03/23/23 04:23 Corrected Sodium 137 mmol/L (136-145) 03/23/23 04:23 Potassium 3.9 mmol/L (3.5-5.1) 03/23/23 04:23 Chloride 105 mmol/L (98-107) 03/23/23 04:23 Carbon Dioxide 24.0 mmol/L (21-32) 03/23/23 04:23 BUN 16 mg/dL (7-18) 03/23/23 04:23 Creatinine 0.99 mg/dL (0.55-1.02) 03/23/23 04:23 Est GFR (MDRD) Af Amer > 60 (>60) 03/23/23 04:23 Est GFR (MDRD) Non-Af > 60 (>60) 03/23/23 04:23 Glucose 114 mg/dL (65-99) H 03/23/23 04:23 POC Glucose (mg/dL) 105 mg/dL (65-99) H 03/23/23 05:06 Lactic Acid 1.5 mmol/L (0.4-2.0) 03/22/23 07:35 Calcium 7.7 mg/dL (8.5-10.1) L 03/23/23 04:23 Corrected Calcium 9.5 mg/dL (8.5-10.1) 03/23/23 04:23 Magnesium 2.1 mg/dL (2.0-2.9) 03/20/23 04:06 Iron 13 ug/dL (50-175) L 03/22/23 04:00 TIBC 180 ug/dL (250-450) L 03/22/23 04:00 Transferrin 142 mg/dL (202-364) L 03/22/23 04:00 Ferritin 333 ng/mL (8-252) H 03/22/23 04:00 Total Bilirubin 0.60 mg/dL (0.2-1.0) 03/23/23 04:23 AST 27 Units/L (15-37) 03/23/23 04:23 ALT 38 Units/L (12-78) 03/23/23 04:23 Alkaline Phosphatase 182 Units/L (46-116) H 03/23/23 04:23 C-Reactive Protein 60.50 mg/L (0-3.0) H 03/22/23 07:35 Total Protein 5.6 g/dL (6.4-8.2) L 03/23/23 04:23 Albumin 1.8 g/dL (3.4-5.0) L 03/23/23 04:23 Globulin 3.8 g/dL (2.5-4.5) 03/23/23 04:23 Albumin/Globulin Ratio 0.5 Ratio (1.1-2.1) L 03/23/23 04:23 Lipase 542 Units/L (73-393) H 03/16/23 15:35 Vitamin B12 1025 pg/mL (193-986) H 03/22/23 04:00 Folate 14.4 ng/mL (>8.6) 03/22/23 04:00 Specimen Type Catherized urine 03/16/23 18:10 Urine Color Dark yellow (YELLOW) 03/16/23 18:10 Urine Appearance Turbid (CLEAR) 03/16/23 18:10 Urine pH 5.0 (5.0 - 8.0) 03/16/23 18:10 Ur Specific [place] 1.025 (1.000-1.030) 03/16/23 18:10 Urine Protein 2+ (NEGATIVE) 03/16/23 18:10 Urine Glucose (UA) Negative (NEGATIVE) 03/16/23 18:10 Urine Ketones Negative (NEGATIVE) 03/16/23 18:10 Urine Blood 5+ (NEGATIVE) 03/16/23 18:10 Urine Nitrite Negative (NEGATIVE) 03/16/23 18:10 Urine Bilirubin 3+ (NEGATIVE) 03/16/23 18:10 Urine Urobilinogen 3+ (NORMAL) 03/16/23 18:10 Ur Leukocyte Esterase 3+ (NEGATIVE) 03/16/23 18:10 Urine RBC 5-10 /HPF (0-3) A 03/16/23 18:10 Urine WBC 30-50 /HPF (0-5) A 03/16/23 18:10 Ur Squamous Epith Cells Rare /HPF (NEGATIVE) 03/16/23 18:10 Ur Transition Epith Cell Few /HPF (NEGATIVE) 03/16/23 18:10 Amorphous Sediment 2+ /HPF (NEGATIVE) 03/16/23 18:10 Urine Bacteria 3+ /HPF (NEGATIVE) 03/16/23 18:10 Ur Culture Indicated? Yes/culture set up 03/16/23 18:10 Stl Occult Blood (IFOB) Negative (NEGATIVE) 03/17/23 07:50 Stool for White Cells Positive (NEGATIVE) A 03/17/23 07:50 Stl C. diff Tox B Gene Negative (NEGATIVE) 03/17/23 07:50 Stl C. diff [id number] Presumptive negative (NEGATIVE) 03/17/23 07:50 Stool H. pylori Ag Negative (NEGATIVE) 03/17/23 07:50 SARS-CoV-2 (PCR) Negative (NEGATIVE) 03/22/23 10:25 Cryptosporid parvum Ag Negative (NEGATIVE) 03/17/23 07:50 Giardia lamblia Ag Negative (NEGATIVE) 03/17/23 07:50 Influenza Type A (PCR) Negative (NEGATIVE) 03/22/23 10:25 Influenza Type B (PCR) Negative (NEGATIVE) 03/22/23 10:25 RSV (PCR) Negative (NEGATIVE) 03/22/23 10:25 Infect Dis PCR Plus See scanned report 03/17/23 07:50 Assessment and Plan 1: entero cutaneous fistula .moderate output .. recent laparotomy . same TPN ,nutritional support , somatostatin and local care of the fistula .. 2: UTI , on IV Antibiotics Problem Patient Problems: Patient Problems Acute hyponatremia (Acute) E87.1 Acute lower urinary tract infection (Acute) N39.0 Sepsis (Acute) A41.9 Urinary tract infection (Acute) N39.0 Open abdominal wall wound (Acute) S31.109A
[2023-03-23] MEDS: ZYVOX 600MG IV 600 MG/300 ML BAG IV SCH ×2 (08:27→20:11)
[2023-03-23] MEDS: PATIENT'S HOME MEDICATION PO SCH (08:30)
[2023-03-23] MEDS ORDERED: NS 100 ML IV 100 ML with VENOFER 400 MG IV NR ×2 (09:00)
[2023-03-23] MEDS: TYLENOL 325 MG TAB PO PRN ×2 (09:12→20:15)
[2023-03-23] MEDS ORDERED: DRUG FILTER EXTENSION SET ONE (09:46)
[2023-03-23] MEDS: CLINIMIX 5 %/20 % 1,000 ML with MVI INJ (ADULT) 10 ML, TPN ELECTROLYTES 20 ML, POTASSIU... IV SCH ×5 (09:48)
[2023-03-23] MEDS: LEVAQUIN PREMIX IV 750 MG 750 MG/150 ML BAG IV SCH (10:20)
--- NOTE | 2023-03-23 18:20 | PCM.PROG ---
Progress Note - Progress Note for Day of Date of Exam: 03/23/23 - Subjective Subjective: The patient is a 58-year-old white female who was admitted with sepsis. She has been on aggressive IV hydration and antibiotic therapy since admission. Her blood cultures and urine cultures grew out enterococcus. She also had an abdominal wound culture and it was growing staph epi as well as some yeast. Zyvox was added to her medication regimen. The abdominal wound is as a result of a fistula that is draining. Dr. eLone has been consulted and added sandostatin as well as wound care. She is on TPN which we have continued. The patient is to have outpatient labs to send to her compound pharmacy so we will get that setup, so whenever she is ready for discharge they will have her TPNs made for her. Pt's repeat set of blood cultures obtained on 03/18 resulted positive for enterococcus also. She had spiked a fever on Monday night. Her chest xray was clear, repeat cultures obtained then, crp 60.50 and sed rate 42 and well as repeat lactic acid level 1.5. Pt was given low dose flexeril 5mg for neck muscle spasms. It helped with pain but lower her BP, so we d/c'd flexeril. Pt to get IV iron infusion today. - Past Medical Family Social History Past Med/Fam/Surg Hx: No changes since H&P Allergies: Allergies amoxicillin Allergy (Verified 03/11/23 12:48) - Review of Systems ROS: No change since H&P - Vital Signs and I&O's Vital Signs: Vital Signs Temperature 98.3 F Temperature 98.0 F Pulse Rate 83 Pulse Rate 78 Pulse Rate 70 Pulse Rate 70 Pulse Rate 75 Pulse Rate 75 Pulse Rate 79 Respiratory Rate 22 Respiratory Rate 21 Respiratory Rate 28 Respiratory Rate 24 Respiratory Rate 24 Respiratory Rate 25 Respiratory Rate 27 Respiratory Rate 20 Blood Pressure 123/69 Blood Pressure 111/56 Blood Pressure 113/60 Blood Pressure 110/58 Blood Pressure 102/59 Blood Pressure 105/61 Blood Pressure 113/61 O2 Sat by Pulse Oximetry 95 O2 Sat by Pulse Oximetry 96 O2 Sat by Pulse Oximetry 94 O2 Sat by Pulse Oximetry 96 O2 Sat by Pulse Oximetry 97 O2 Sat by Pulse Oximetry 97 O2 Sat by Pulse Oximetry 98 Intake and Output: Intake & Output 03/21/23 03/22/23 03/23/23 03/24/23 11:59 11:59 11:59 11:59 Intake Total 2357 / 2357 2598 / 2598 2664 / 2664 1229 / 1229 Output Total 2550 / 2550 2475 / 2475 2600 / 2600 1999 Balance -193 / -193 123 / 123 64 / 64 -771 / -771 - Physical Exam Oriented: Normal Eyes: Normal Ear: Normal Nose: Normal Throat: Normal Respiratory: Diminished Cardiovascular: Normal Auscultation: Bowel Sounds: Other (Colostomy is working well .soft flat , nontender abdomen with 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) Tenderness: Diffuse, Mild Skin: Decreased Turgur, Wound (14 x 4 cm with visible mesh and fistula draining in the middle) Musculoskeletal: Normal Psychiatric: Anxiety Affect: Anxious Speech Pattern: Clear, Appropriate - Laboratory and Diagnostics Result Diagrams: 03/23/23 04:23 03/23/23 04:23 Labs: 03/17/23 07:50 Abdomen Wound Gram Stain - Final 03/17/23 07:50 Abdomen Wound Culture - Preliminary Staphylococcus Epidermidis [place] Parapsilosis 03/18/23 11:35 Blood Blood Culture - Final Enterococcus Faecalis 03/18/23 11:20 Blood Blood Culture - Final Enterococcus Faecalis 03/16/23 18:10 Urine,Catheterized Urine Culture - Final Enterococcus Faecalis 03/16/23 15:45 Blood Blood Culture - Final Enterococcus Faecalis 03/16/23 15:35 Blood Blood Culture - Final Enterococcus Faecalis Laboratory WBC 10.0 X10^3/uL (3.6-10.0) 03/23/23 04:23 RBC 2.94 X10^6/uL (3.5-5.4) L 03/23/23 04:23 Hgb 8.5 g/dL (12.0-16.0) L 03/23/23 04:23 Hct 24.4 % (36.0-47.0) L 03/23/23 04:23 MCV 83.1 fL (80.0-100.0) 03/23/23 04:23 MCH 29.0 pg (27.0-34.0) 03/23/23 04:23 MCHC 34.9 g/dL (33.0-35.0) 03/23/23 04:23 RDW 17.7 % (11.6-16.5) H 03/23/23 04:23 Plt Count 192 X10^3/uL (150.0-450.0) 03/23/23 04: Plt Count Comment Decreased (ADEQUATE) A 03/19/23 04: MPV 9.2 fL (7.4-11.0) 03/23/23 04:23 Neut % (Auto) 70.5 % (42.0-75.0) 03/23/23 04: Lymph % (Auto) 19.4 % (21.0-51.0) L 03/23/23 04:23 [place] % (Auto) 8.8 % (0.0-13.0) 03/23/23 04: Eos % (Auto) 1.1 % (0.9-2.9) 03/23/23 04: Baso % (Auto) 0.2 % (0.2-1.0) 03/23/23 04:23 Neut # (Auto) 7.0 x10^3/uL (2.2-4.8) H 03/23/23 04:23 Lymph # (Auto) 1.9 X10^3/uL (1.3-2.9) 03/23/23 04:23 [place] # (Auto) 0.9 x10^3/uL (0.3-0.8) H 03/23/23 04:23 Eos # (Auto) 0.1 x10^3/uL (0.0-0.2) 03/23/23 04:23 Baso # (Auto) 0.0 X10^3/uL (0.0-0.1) 03/23/23 04: Absolute Nucleated RBC 0.0 /100WBC 03/23/23 04:23 Total Counted 100 03/19/23 04:26 Neutrophils % (Manual) 75 % (39-76) 03/19/23 04:26 Lymphocytes % (Manual) 20 % (13-43) 03/19/23 04:26 Monocytes % (Manual) 5 % (4-9) 03/19/23 04:26 Plt Morphology Comment Normal (NORMAL) 03/19/23 04:26 RBC Morphology Normal (NORMAL) 03/19/23 04:26 ESR 42 MM/HOUR (0-20) H 03/22/23 07:35 Sodium 137 mmol/L (136-145) 03/23/23 04:23 Corrected Sodium 137 mmol/L (136-145) 03/23/23 04:23 Potassium 3.9 mmol/L (3.5-5.1) 03/23/23 04:23 Chloride 105 mmol/L (98-107) 03/23/23 04:23 Carbon Dioxide 24.0 mmol/L (21-32) 03/23/23 04:23 BUN 16 mg/dL (7-18) 03/23/23 04:23 Creatinine 0.99 mg/dL (0.55-1.02) 03/23/23 04:23 Est GFR (MDRD) Af Amer > 60 (>60) 03/23/23 04:23 Est GFR (MDRD) Non-Af > 60 (>60) 03/23/23 04:23 Glucose 114 mg/dL (65-99) H 03/23/23 04:23 POC Glucose (mg/dL) 136 mg/dL (65-99) H 03/23/23 15:30 Lactic Acid 1.5 mmol/L (0.4-2.0) 03/22/23 07:35 Calcium 7.7 mg/dL (8.5-10.1) L 03/23/23 04:23 Corrected Calcium 9.5 mg/dL (8.5-10.1) 03/23/23 04:23 Magnesium 2.1 mg/dL (2.0-2.9) 03/20/23 04:06 Iron 13 ug/dL (50-175) L 03/22/23 04:00 TIBC 180 ug/dL (250-450) L 03/22/23 04:00 Transferrin 142 mg/dL (202-364) L 03/22/23 04:00 Ferritin 333 ng/mL (8-252) H 03/22/23 04:00 Total Bilirubin 0.60 mg/dL (0.2-1.0) 03/23/23 04:23 AST 27 Units/L (15-37) 03/23/23 04:23 ALT 38 Units/L (12-78) 03/23/23 04:23 Alkaline Phosphatase 182 Units/L (46-116) H 03/23/23 04:23 C-Reactive Protein 60.50 mg/L (0-3.0) H 03/22/23 07:35 Total Protein 5.6 g/dL (6.4-8.2) L 03/23/23 04:23 Albumin 1.8 g/dL (3.4-5.0) L 03/23/23 04:23 Globulin 3.8 g/dL (2.5-4.5) 03/23/23 04:23 Albumin/Globulin Ratio 0.5 Ratio (1.1-2.1) L 03/23/23 04:23 Lipase 542 Units/L (73-393) H 03/16/23 15:35 Vitamin B12 1025 pg/mL (193-986) H 03/22/23 04:00 Folate 14.4 ng/mL (>8.6) 03/22/23 04:00 Specimen Type Catherized urine 03/16/23 18:10 Urine Color Dark yellow (YELLOW) 03/16/23 18:10 Urine Appearance Turbid (CLEAR) 03/16/23 18:10 Urine pH 5.0 (5.0 - 8.0) 03/16/23 18:10 Ur Specific Marine 1.025 (1.000-1.030) 03/16/23 18:10 Urine Protein 2+ (NEGATIVE) 03/16/23 18:10 Urine Glucose (UA) Negative (NEGATIVE) 03/16/23 18:10 Urine Ketones Negative (NEGATIVE) 03/16/23 18:10 Urine Blood 5+ (NEGATIVE) 03/16/23 18:10 Urine Nitrite Negative (NEGATIVE) 03/16/23 18:10 Urine Bilirubin 3+ (NEGATIVE) 03/16/23 18:10 Urine Urobilinogen 3+ (NORMAL) 03/16/23 18:10 Ur Leukocyte Esterase 3+ (NEGATIVE) 03/16/23 18:10 Urine RBC 5-10 /HPF (0-3) A 03/16/23 18:10 Urine WBC 30-50 /HPF (0-5) A 03/16/23 18:10 Ur Squamous Epith Cells Rare /HPF (NEGATIVE) 03/16/23 18:10 Ur Transition Epith Cell Few /HPF (NEGATIVE) 03/16/23 18:10 Amorphous Sediment 2+ /HPF (NEGATIVE) 03/16/23 18:10 Urine Bacteria 3+ /HPF (NEGATIVE) 03/16/23 18:10 Ur Culture Indicated? Yes/culture set up 03/16/23 18:10 Stl Occult Blood (IFOB) Negative (NEGATIVE) 03/17/23 07:50 Stool for White Cells Positive (NEGATIVE) A 03/17/23 07:50 Stl C. diff Tox B Gene Negative (NEGATIVE) 03/17/23 07:50 Stl C. diff [id number] Presumptive negative (NEGATIVE) 03/17/23 07:50 Stool H. pylori Ag Negative (NEGATIVE) 03/17/23 07:50 SARS-CoV-2 (PCR) Negative (NEGATIVE) 03/22/23 10:25 Cryptosporid parvum Ag Negative (NEGATIVE) 03/17/23 07:50 Giardia lamblia Ag Negative (NEGATIVE) 03/17/23 07:50 Influenza Type A (PCR) Negative (NEGATIVE) 03/22/23 10:25 Influenza Type B (PCR) Negative (NEGATIVE) 03/22/23 10:25 RSV (PCR) Negative (NEGATIVE) 03/22/23 10:25 Infect Dis PCR Plus See scanned report 03/17/23 07:50 - Plan (1) Sepsis Status: Acute Plan: ICU. BLOOD, URINE AND WOUND CULTURE ON ADMISSION. IV HYDRATION, STRICT I&OS. BP CONTROL, CARDIAC MONITORING. IV ZYVOX AND LEVAQUIN. PHYSICAL THERAPY. CONTINUE TPN (2) Urinary tract infection Status: Acute (3) Open abdominal wall wound Status: Acute (4) Acute hyponatremia Status: Acute
[2023-03-23] MEDS: PEPCID TAB 20 MG PO SCH (20:11)
[2023-03-23] MEDS: REQUIP PO PRN (20:11)
[2023-03-23] MEDS: LIPOSYN III 20% 250ML 250 ML IV SCH (20:11)
[2023-03-24 04:24] LABS: BASOPHILS % (AUTO) 0.2 % (0.2-1.0); EOSINOPHILS # (AUTO) 0.1 x10^3/uL (0.0-0.2); EOSINOPHILS % (AUTO) 0.9 % (0.9-2.9); HEMATOCRIT 24.7 % (36.0-47.0); HEMOGLOBIN 8.4 g/dL (12.0-16.0); LYMPHOCYTES # (AUTO) 2.1 X10^3/uL (1.3-2.9); LYMPHOCYTES % (AUTO) 18.5 % (21.0-51.0); MEAN CORPUSCULAR HEMOGLOBIN 28.4 pg (27.0-34.0); MEAN CORPUSCULAR VOLUME 83.3 fL (80.0-100.0); MEAN PLATELET VOLUME 8.6 fL (7.4-11.0); MONOCYTES # (AUTO) 0.8 x10^3/uL (0.3-0.8); MONOCYTES % (AUTO) 7.4 % (0.0-13.0); NEUTROPHILS # (AUTO) 8.3 x10^3/uL (2.2-4.8); PLATELET COUNT 236 X10^3/uL (150.0-450.0); RED BLOOD COUNT 2.97 X10^6/uL (3.5-5.4); RED CELL DISTRIBUTION WIDTH 17.5 % (11.6-16.5); WHITE BLOOD COUNT 11.3 X10^3/uL (3.6-10.0)
[2023-03-24 04:36] LABS: ALANINE AMINOTRANSFERASE 31 Units/L (12-78); ALBUMIN 1.7 g/dL (3.4-5.0); ALKALINE PHOSPHATASE 169 Units/L (46-116); ASPARTATE AMINO TRANSFERASE 19 Units/L (15-37); BLOOD UREA NITROGEN 11 mg/dL (7-18); CALCIUM 7.6 mg/dL (8.5-10.1); CHLORIDE 105 mmol/L (98-107); COR CA(FOR HYPOALB) 9.4 mg/dL (8.5-10.1); COR NA(FOR HYPERGLY) 138 mmol/L (136-145); CREATININE 0.91 mg/dL (0.55-1.02); GLUCOSE 115 mg/dL (65-99); SODIUM 138 mmol/L (136-145); TOTAL PROTEIN 5.6 g/dL (6.4-8.2); eGFR NON BLACK RACES > 60 (>60)
[2023-03-24] MEDS: TYLENOL 325 MG TAB PO PRN ×2 (06:52→14:16)
[2023-03-24] MEDS: PATIENT'S HOME MEDICATION PO SCH (08:52)
[2023-03-24] MEDS: PEPCID TAB 20 MG PO SCH (08:52)
[2023-03-24] MEDS: LEVAQUIN PREMIX IV 750 MG 750 MG/150 ML BAG IV SCH (08:52)
[2023-03-24] MEDS: CLINIMIX 5 %/20 % 1,000 ML with MVI INJ (ADULT) 10 ML, TPN ELECTROLYTES 20 ML, POTASSIU... IV SCH ×5 (08:52)
[2023-03-24] MEDS: ZYVOX 600MG IV 600 MG/300 ML BAG IV SCH (08:53)
[2023-03-24] MEDS: D5 NS 1,000 ML IV 1,000 ML IV SCH (08:53)
[2023-03-24 14:17] VITALS: RESP 20
[2023-03-24 14:48] VITALS: BP 118/64; PULSE 88; TEMP 97.7; O2SAT 97
== END 2023-03-24 14:40 | disposition home or self-care (01) | DRG 872 ==
LOC: ER 14:20 → ICU 14:20 → OBSVTOIN 20:13 → ICU 20:39
PROVIDERS: ADMIT Internal Medicine; ATTEND Internal Medicine
DX: R10.9 Unspecified abdominal pain; R26.2 Difficulty in walking, not elsewhere classified; E87.1 Hypo-osmolality and hyponatremia; G25.81 Restless legs syndrome; N39.0 Urinary tract infection, site not specified; T81.83XA Persistent postprocedural fistula, initial encounter; Z43.3 Encounter for attention to colostomy; N32.1 Vesicointestinal fistula; K63.89 Other specified diseases of intestine; A41.81 Sepsis due to Enterococcus; D64.9 Anemia, unspecified; E03.9 Hypothyroidism, unspecified; N36.0 Urethral fistula; F41.9 Anxiety disorder, unspecified; R06.02 Shortness of breath; Z98.0 Intestinal bypass and anastomosis status